=== PATIENT | male | born 1990 | race Caucasian/White ===

== ENCOUNTER 2016-05-08 12:30 | Emergency (ER) | payer OTHER ==
[2016-05-08 12:50] VITALS: BP 116/75; PULSE 102; TEMP 98; BMI 33.9
[2016-05-08] MEDS ORDERED: KETOROLAC TROMETHAMINE 60 MG/2 ML VIAL ONE (13:51)
[2016-05-08] MEDS ORDERED: diazePAM 5 MG TABLET PO ONE (13:51)
[2016-05-08] MEDS ORDERED: KETOROLAC TROMETHAMINE 60 MG/2 ML VIAL IM ONE (13:51)
[2016-05-08] MEDS ORDERED: diazePAM 5 MG TABLET ONE (13:56)
--- NOTE | 2016-05-08 14:37 | PDOC ---
History of Present Illness - General Chief Complaint: Back Pain Stated Complaint: LOWER BACK PAIN Time Seen by Provider: 05/08/16 13:40 History Source: Patient Exam Limitations: No Limitations - History of Present Illness Initial Comments: 05/08/16 14:32 LOwer back pain x 2 days; hx of similar episodes in past; LMD is sending to PT in near future Occurred: reports: other (x 2 days ago; no trauma) Severity: reports: mild Pain Location: reports: back Loss of Consciousness: no loss of consciousness Associated Symptoms (Fall): muscle spasms Past History - Past Medical History Allergies/Adverse Reactions: Allergies Allergy/AdvReac Type Severity Reaction Status Date / Time No Known Allergies Allergy Verified 05/08/16 12:48 Home Medications: Ambulatory Orders NK [No Known Home Medication] 05/08/16 Asthma: Yes - Psycho/Social/Smoking Cessation Hx Suicidal Ideation: No Smoking History: Never smoked Review of Systems - Review of Systems Constitutional: No: Chills, Fever, Malaise HEENTM: No: Symptoms Reported Respiratory: No: Symptoms reported Cardiac (ROS): No: Symptoms Reported ABD/GI: No: Symptoms Reported : No: Symptoms Reported, Dysuria, Frequency, Incontinence, Pain, Urgency, Testicular Swelling, Testicular Pain Musculoskeletal: Yes: Back Pain, Muscle Pain. No: Joint Pain, Neck Pain Integumentary: No: Symptoms Reported, Rash Neurological: Yes: Weakness (pain weakness). No: Headache, Numbness, Paresthesia Endocrine: No: Symptoms Reported Hematologic/Lymphatic: No: Symptoms Reported *Physical Exam - Vital Signs Last Vital Signs Temp Pulse Resp BP Pulse Ox 98 F 102 H 19 116/75 97 05/08/16 12:48 05/08/16 12:48 05/08/16 12:48 05/08/16 12:48 05/08/16 12:48 - Physical Exam General Appearance: Yes: Appropriately Dressed. No: Apparent Distress HEENT: positive: TMs Normal, Pharynx Normal Neck: positive: Supple. negative: Tender, Rigid, Tender midline Respiratory/Chest: positive: Lungs Clear, Normal Breath Sounds. negative: Accessory Muscle Use Cardiovascular: positive: Regular Rhythm, Regular Rate, Murmur Rectal Exam: positive: deferred Musculoskeletal: positive: Muscle Spasm, Other (tender to area left SI joint) Extremity: negative: Normal Capillary Refill, Normal Inspection Neurologic: positive: Babinski, Other (no foot drop; SLRs= no root pain). negative: Sensory Deficit Deep Tendon Reflexes: Ankle (L): 2+, Ankle (R): 2+, Knee (L): 2+, Knee (R): 2+ ED Treatment Course - Medications Given in the ED: ED Medications Discontinued Medications Generic Name Dose Route Start Last Admin Trade Name Agustin PRN Reason Stop Dose Admin Diazepam 5 mg 05/08/16 13:51 05/08/16 13:57 Valium - PO 05/08/16 13:52 5 mg ONCE ONE Administration Ketorolac Tromethamine 60 mg 05/08/16 13:51 05/08/16 13:57 Toradol Injection - IM 05/08/16 13:52 60 mg ONCE ONE Administration Medical Decision Making - Medical Decision Making 05/08/16 14:36 feeling better post toradol and valium; will referr to local MD for continued workup *DC/Admit/Observation/Transfer Diagnosis at time of Disposition: Back pain Qualifiers: Back pain location: low back pain Chronicity: acute Back pain laterality: unspecified Sciatica presence: with sciatica Sciatica laterality: sciatica of left side Qualified Code(s): M54.42 - Lumbago with sciatica, left side - Discharge Dispostion Disposition: HOME Condition at time of disposition: Stable Admit: No - Patient Instructions Additional Instructions: please see local MD next week and start PT as needed - Post Discharge Activity Work/School Note: Back to Work
== END 2016-05-08 14:41 | disposition home or self-care (01) ==
LOC: JERFT 12:30
PROC: 3E0233Z Introduction of Anti-inflammatory into Muscle, Percutaneous Approach (ICD-10-PCS; principal; 2016-05-08)
DX: M54.42 Lumbago with sciatica, left side (principal); J45.909 Unspecified asthma, uncomplicated
CPT/HCPCS: 99281-25

== ENCOUNTER 2017-05-24 08:34 | Emergency (ER) | payer OTHER ==
[2017-05-24 08:45] VITALS: BP 136/54; PULSE 73; TEMP 98; BMI 33.9
[2017-05-24] MEDS ORDERED: KETOROLAC TROMETHAMINE 60 MG/2 ML VIAL IM ONE (09:34)
[2017-05-24] MEDS ORDERED: diazePAM 5 MG TABLET PO ONE (09:34)
[2017-05-24] MEDS ORDERED: diazePAM 5 MG TABLET ONE (09:35)
[2017-05-24] MEDS ORDERED: KETOROLAC TROMETHAMINE 60 MG/2 ML VIAL ONE (09:35)
--- NOTE | 2017-05-24 09:38 | PDOC ---
History of Present Illness - General Chief Complaint: Back Pain Stated Complaint: BACK PAIN Time Seen by Provider: 05/24/17 09:12 History Source: Patient Exam Limitations: No Limitations - History of Present Illness Initial Comments: 05/24/17 09:35 CHIEF COMPLAINT: [Lower back pain] HISTORY OF PRESENT ILLNESS: 26-year-old male, history of low back pain reports today was working out doing pushups felt pain to lower back with him down bilateral legs. [ Described as stiffness to lower back. Pain reproduced more with movement. No neurosensory deficits, no bowel or bladder incontinence or urinary retention, felt as if he had to have a bowel movement when pain started however no episode of incontinence, no saddle anesthesia, no footdrop. No history of IVDU or history of cancer. Ambulatory to the ER.] REVIEW OF SYSTEMS: GENERAL: Afebrile, denies any weakness RESPIRATORY: No cough, wheezing, or hemoptysis. CARDIAC: No chest pain or shortness of breath MUSCULOSKELETAL: Pain to generalized lower back. No point tenderness. Pain worse on [right than left. ] SKIN : No erythema, no bruising, no deformity. GI/: Denies any abdominal pain, no urinary difficulty, incontinence or urinary retention. RECTAL: Denies any difficulty this A.m. NEUROLOGICAL: Denies any numbness or tingling. No neurosensory deficits. PHYSICAL EXAM: GENERAL: The patient is awake, alert, and fully oriented, in no acute distress. RESPIRATORY: Lungs clear bilaterally, no rhonchi wheezes or crackles CARDIAC: S1-S2 audible, no murmur rub or gallop MUSCULOSKELETAL: Pain to generalized lower back, no direct spinal point tenderness, no tingling or sensory deficit. Less than 2 second cap refill, +4 popliteal and pedal pulses. GI/: Abdomen soft, nontender, nondistended. No rebound tenderness. No masses palpable. MUSCULOSKELETAL: No spinal point tenderness. Normal reflexive and no deficits to sensation or strength. RECTAL: [Normal Rectal Tone]. SKIN: Warm, Dry, normal turgor, no erythema, no edema no bruising. Past History - Past Medical History Allergies/Adverse Reactions: Allergies Allergy/AdvReac Type Severity Reaction Status Date / Time No Known Allergies Allergy Verified 05/24/17 08:45 Home Medications: Ambulatory Orders Cyclobenzaprine HCl [Flexeril 10 mg] 10 mg PO BID PRN #20 tablet 05/24/17 Methylprednisolone [Medrol Dose Dhruv] 4 mg PO ASDIR #21 tablet 05/24/17 Mometasone Furoate [Asmanex] 110 mcg PO ASDIR 05/24/17 Asthma: Yes COPD: No - Suicide/Smoking/Psychosocial Hx Smoking History: Never smoked Information on smoking cessation initiated: Yes Hx Alcohol Use: No Drug/Substance Use Hx: No Substance Use Type: None *Physical Exam - Vital Signs Last Vital Signs Temp Pulse Resp BP Pulse Ox 98 F 73 19 136/54 100 05/24/17 08:43 05/24/17 08:43 05/24/17 08:43 05/24/17 08:43 05/24/17 08:43 ED Treatment Course - RADIOLOGY Radiology Studies Ordered: Category Date Time Status SPINE-LUMBAR SACRAL [RAD] Stat Radiology 05/24/17 09:34 Ordered Medical Decision Making - Medical Decision Making 05/24/17 09:37 A/P: Pain to generalized lower back with no direct spinal point tenderness. No neurosensory deficits. Patient has had similar pain in the past no x-rays were performed. Will perform x-ray of lumbar sacral area, Toradol 60 mg and Valium 5 mg. 05/24/17 10:52 X-ray demonstrates mild asymmetric L4-L5 degenerative disc space narrowing. Will discharge on Medrol Dosepak, Flexeril, follow-up for further evaluation for chronic back pain. *DC/Admit/Observation/Transfer Diagnosis at time of Disposition: Back pain Qualifiers: Back pain location: low back pain Chronicity: chronic Back pain laterality: bilateral Sciatica presence: without sciatica Qualified Code(s): M54.5 - Low back pain; G89.29 - Other chronic pain; G89.29 - Other chronic pain - Discharge Dispostion Disposition: HOME Condition at time of disposition: Stable - Prescriptions Prescriptions: Cyclobenzaprine HCl [Flexeril 10 mg] 10 mg PO BID PRN #20 tablet PRN Reason: Pain Methylprednisolone [Medrol Dose Dhruv] 4 mg PO ASDIR #21 tablet - Referrals Referrals: Kirk Fox MD [Primary Care Provider] - Javier Handley MD [Staff Physician] - - Patient Instructions Printed Discharge Instructions: Low Back Pain Additional Instructions: 1. Please return to the emergency department with any numbness, tingling, weakness, numbness or tingling to groin or legs, or loss of bowel or bladder function. 2. Use pain medication as ordered. 3. Please is to followup in the office of Dr. Handley for evaluation within a week if no improvement. 4. Ice or heat 5. Refrain from lifting anything above 10 pounds, until pain resolved. - Post Discharge Activity Forms/Work/School Notes: Back to Work
== END 2017-05-24 11:02 | disposition home or self-care (01) ==
LOC: JERFT 08:34
PROC: 3E0233Z Introduction of Anti-inflammatory into Muscle, Percutaneous Approach (ICD-10-PCS; principal; 2017-05-24)
DX: M54.5 Low back pain (principal); G89.29 Other chronic pain; X50.0XXA Overexertion from strenuous movement or load, initial encounter; X50.3XXA Overexertion from repetitive movements, initial encounter; Y93.B2 Activity, push-ups, pull-ups, sit-ups; Y92.89 Other specified places as the place of occurrence of the external cause; Y99.8 Other external cause status
CPT/HCPCS: 72100-TC-FY; 99281-25

== ENCOUNTER 2017-06-01 17:17 | Emergency (ER) | payer OTHER ==
--- NOTE | 2017-06-01 17:19 | PDOC ---
Rapid Medical Evaluation Time Seen by Provider: 06/01/17 17:18 Medical Evaluation: Allergies Allergy/AdvReac Type Severity Reaction Status Date / Time No Known Allergies Allergy Verified 05/24/17 08:45 06/01/17 17:19 I have performed a brief in-person evaluation of this patient. The patient presents with a chief complaint of: Body aches, cough, f/c x 3 days , child w/ flu at home per pt Pertinent physical exam findings:Temp of 100.8 w/ HR of 110 I have ordered the following:flu The patient will proceed to the ED for further evaluation. 06/01/17 17:19 06/01/17 17:23 Discharge Disposition - Diagnosis Body aches - Referrals - Patient Instructions - Post Discharge Activity
[2017-06-01 17:21] VITALS: BP 140/78; PULSE 110; TEMP 100.8; BMI 33.9
[2017-06-01] MEDS ORDERED: ACETAMINOPHEN 325 MG TABLET (FP) PO ONE (18:31)
[2017-06-01] MEDS ORDERED: ALBUTEROL SO4 2.5/IPRATROPIUM 0.5 INH SOL 3 ML VIAL.NEB. NEB ONE ×4 (18:52→19:22)
[2017-06-01] MEDS ORDERED: predniSONE 20 MG TABLET (UD) PO ONE (19:18)
[2017-06-01] MEDS ORDERED: predniSONE 20 MG TABLET (UD) ONE (19:22)
--- NOTE | 2017-06-01 19:25 | PDOC ---
History of Present Illness - General Chief Complaint: Cold Symptoms Stated Complaint: COLD SYMPTOMS Time Seen by Provider: 06/01/17 17:18 History Source: Patient Exam Limitations: No Limitations - History of Present Illness Initial Comments: 06/01/17 19:19 Patient here for evaluation of fevers Tmax 102 yesterday, moist nonproductive cough, runny nose, and generalized body aches that started 2 days ago. States daughter was diagnosed with influenza by swab 3 days ago and states this cold has exacerbated his asthma Timing/Duration: reports: getting worse Severity: reports: mild, moderate Modifying Factors: improves with: albuterol inhaler Associated Symptoms: reports: cough, facial pain, nasal congestion, sore throat , wheezing Past History - Travel Traveled outside of the country in the last 30 days: No Close contact w/someone who was outside of country & ill: No - Past Medical History Allergies/Adverse Reactions: Allergies Allergy/AdvReac Type Severity Reaction Status Date / Time No Known Allergies Allergy Verified 06/01/17 17:22 Home Medications: Ambulatory Orders Albuterol 0.083% Nebulizer Yesi [Ventolin 0.083% Nebulizer Soln -] 1 neb NEB Q4H PRN #30 vial 06/01/17 Oseltamivir Phosphate [Tamiflu -] 75 mg PO BID #10 capsule 06/01/17 predniSONE [Deltasone -] 20 mg PO BID #8 tablet 06/01/17 Asthma: Yes COPD: No DVT: No - Suicide/Smoking/Psychosocial Hx Smoking History: Never smoked Information on smoking cessation initiated: No Hx Alcohol Use: No Drug/Substance Use Hx: No Substance Use Type: None Review of Systems - Review of Systems Able to Perform ROS?: Yes Is the patient limited Faroese proficient: Yes Constitutional: Yes: Symptoms Reported, See HPI, Fever, Malaise HEENTM: Yes: Symptoms Reported Respiratory: Yes: Symptoms reported, See HPI, Cough, Wheezing Musculoskeletal: Yes: Symptoms Reported, Back Pain, Joint Pain Integumentary: No: Symptoms Reported All Other Systems: Reviewed and Negative *Physical Exam - Vital Signs Last Vital Signs Temp Pulse Resp BP Pulse Ox 100.8 F H 110 H 19 140/78 98 06/01/17 17:19 06/01/17 17:19 06/01/17 17:19 06/01/17 17:19 03/28/18 17:19 - Physical Exam Comments: 06/01/17 19:20 GENERAL: [The child is awake, alert, and appropriately interactive.] EYES: [The pupils are equal, round, and reactive to light, with clear, conjunctiva.but glassy] NOSE: [The nose with clear drainage EARS: [The ear canals and tympanic membranes are congested but landmarks easily visualed ] THROAT: [The oropharynx is clear with erythema, no exudates. The mucous membranes are moist.] NECK: [The neck is supple with mildly tender adenopathy, no menigemous] CHEST: [The lungs are coarse but clear without crackles, but + wheezes and shortness of breath..] HEART: [Heart is regular rhythm, with normal S1 and S2, no murmurs.] ABDOMEN: [The abdomen is soft and nontender with normal bowel sounds. There is no organomegaly and no mass. There is no guarding or rebound.] EXTREMITIES: [Extremities are normal.] NEURO: [Behavior is normal for age.cranky but easily,m Tone is normal.] SKIN: [Skin is unremarkable without rash or swelling. There is no bruising, and there are no other signs of injury.] General Appearance: Yes: Nourished, Appropriately Dressed, Apparent Distress HEENT: positive: CAROL, TMs Normal, Pharyngeal Erythema, Nasal Congestion, Rhinorrhea Neck: positive: Supple. negative: Tender, Lymphadenopathy (R), Lymphadenopathy (L) Respiratory/Chest: positive: Decreased Breath Sounds, Wheezing. negative: Lungs Clear ED Treatment Course - ADDITIONAL ORDERS Additional order review: 06/01/17 17:25 Influenza Types A,B Antigen (DEL) - Final Nasopharyngeal Swab - Final - Medications Given in the ED: ED Medications Discontinued Medications Generic Name Dose Route Start Last Admin Trade Name Freq PRN Reason Stop Dose Admin Acetaminophen 650 mg 06/01/17 18:31 06/01/17 18:33 Tylenol - PO 06/01/17 18:32 650 mg ONCE ONE Administration Progress Note - Progress Note Progress Note: Probable influenza although influenza testing negative. Has every clinical evidence including risk factors with daughter sick at home with same. We will treat with Tamiflu is within window, continue albuterol nebulizers and short course of prednisone. *DC/Admit/Observation/Transfer Diagnosis at time of Disposition: Body aches, Influenzal acute upper respiratory infection - Discharge Dispostion Disposition: HOME Condition at time of disposition: Stable Admit: No - Prescriptions Prescriptions: Albuterol 0.083% Nebulizer Yesi [Ventolin 0.083% Nebulizer Soln -] 1 neb NEB Q4H PRN #30 vial PRN Reason: Cough Oseltamivir Phosphate [Tamiflu -] 75 mg PO BID #10 capsule predniSONE [Deltasone -] 20 mg PO BID #8 tablet - Referrals Referrals: Selene Bernard MD [Primary Care Provider] - - Patient Instructions Additional Instructions: Rest, drink lots of fluids: Teas, water, soups, Pedialyte Saltwater gargles Steamy showers/seem to face break up mucus Old-fashioned treatments help! Avoid contact with others until fevers and cough resolved as this is very contagious Lots of handwashing and good hygiene Continue [id number] medications for symptomatic relief Tylenol or Motrin for fever and pain Take all of Tamiflu as directed: 1 tab every 12 hours for 5 days Albuterol nebulizers every 4-6 hours for the next few days then as needed for continued cough and wheeze Prednisone 40 mg tablets for the next 4 days Followup with private physician in one to 2 days as needed or if worsening Return to emergency department for worsened symptoms, fevers, dehydration Influenza takes between 5 and 7 days for resolution To not participate in any activity, work, or school until fevers and cough are gone for at least one day - Post Discharge Activity Forms/Work/School Notes: Back to Work
== END 2017-06-01 19:57 | disposition home or self-care (01) ==
LOC: JERFT 17:17
PROC: 3E0F7GC Introduction of Other Therapeutic Substance into Respiratory Tract, Via Natural or Artificial Opening (ICD-10-PCS; principal; 2017-06-01)
DX: R52 Pain, unspecified (principal); J45.909 Unspecified asthma, uncomplicated
CPT/HCPCS: 87804; 99281-25

== ENCOUNTER 2017-10-13 13:27 | Inpatient (IN) | payer OTHER ==
[2017-10-13] MEDS ORDERED: SODIUM CHLORIDE 1,000 ML IV STA ×2 (14:24→15:56)
--- NOTE | 2017-10-13 14:24 | PDOC ---
History of Present Illness - General Chief Complaint: Hematuria Stated Complaint: HEMATURIA Time Seen by Provider: 10/13/17 14:12 - History of Present Illness Initial Comments: 10/13/17 16:05 The patient is a 27 year old male with a past medical history of asthma who presents to the emergency department for evaluation of hematuria. The patient reports episodes of dark urine today. He reports weightlifting on Tuesday after a long period of not exercising. He reports doing a lot of resistance and heavy weight lifting. He tried to work out again today but was unable to due to muscle soreness. He describes the urine as iced tea colored, but denies bright red color. The patient reports generalized soreness throughout the body, but denies pain. At presentation, the patient has no other complaints. The patient denies recent illness, chest pain, back pain, shortness of breath, headache, and dizziness. Denies fever, chills, nausea, vomiting, diarrhea, constipation, dysuria, and urinary urgency/frequency. Reports normal UOP. Allergies: NKDA Social History: No reported alcohol, cigarette, or drug use. Surgical History: Denies. PCP: Dr. Bernard ([phone]) Past History - Past Medical History Allergies/Adverse Reactions: Allergies Allergy/AdvReac Type Severity Reaction Status Date / Time No Known Allergies Allergy Verified 10/13/17 13:33 Home Medications: Ambulatory Orders Albuterol 0.083% Nebulizer Yesi [Ventolin 0.083% Nebulizer Soln -] 1 neb NEB Q4H PRN #30 vial 06/01/17 Oseltamivir Phosphate [Tamiflu -] 75 mg PO BID #10 capsule 06/01/17 predniSONE [Deltasone -] 20 mg PO BID #8 tablet 06/01/17 Asthma: Yes COPD: No DVT: No - Immunization History Immunization Up to Date: Yes - Suicide/Smoking/Psychosocial Hx Smoking History: Never smoked Information on smoking cessation initiated: No Hx Alcohol Use: Yes (SOCIAL) Drug/Substance Use Hx: No Substance Use Type: None Review of Systems - Review of Systems Comments:: 10/13/17 16:11 GENERAL/CONSTITUTIONAL: No fever or chills. No weakness. HEAD, EYES, EARS, NOSE AND THROAT: No change in vision. No ear pain or discharge. No sore throat. GASTROINTESTINAL: No nausea, vomiting, diarrhea or constipation. GENITOURINARY: (+)dark urine. No dysuria, frequency, or change in urination. CARDIOVASCULAR: No chest pain or shortness of breath. RESPIRATORY: No cough, wheezing, or hemoptysis. MUSCULOSKELETAL: (+)Diffuse body soreness.No joint pain. No neck or back pain. SKIN: No rash NEUROLOGIC: No headache, vertigo, loss of consciousness, or change in strength/ sensation. ENDOCRINE: No increased thirst. No abnormal weight change. HEMATOLOGIC/LYMPHATIC: No anemia, easy bleeding, or history of blood clots. ALLERGIC/IMMUNOLOGIC: No hives or skin allergy. *Physical Exam - Vital Signs Last Vital Signs Temp Pulse Resp BP Pulse Ox 98.3 F 86 20 139/92 99 10/13/17 13:30 10/13/17 13:30 10/13/17 13:30 10/13/17 13:30 10/13/17 13:30 - Physical Exam Comments: 10/13/17 16:11 GENERAL: Awake, alert, and fully oriented, in no acute distress HEAD: No signs of trauma EYES: PERRLA, EOMI, sclera anicteric, conjunctiva clear ENT: Auricles normal inspection, hearing grossly normal, nares patent, oropharynx clear without exudates. Moist mucosa NECK: Normal ROM, supple, no lymphadenopathy, JVD, or masses LUNGS: Breath sounds equal, clear to auscultation bilaterally. No wheezes, and no crackles HEART: Regular rate and rhythm, normal S1 and S2, no murmurs, rubs or gallops ABDOMEN: Soft, nontender, normoactive bowel sounds. No guarding, no rebound. No masses EXTREMITIES: Normal range of motion, no edema. No clubbing or cyanosis. No cords , erythema, or tenderness BACK: No midline spinal tenderness in cervical/thoracic/lumbar region NEUROLOGICAL: Normal speech, cranial nerves intact, negative pronator drift, 5/ 5 strength in all 4 extremities, normal sensation to light touch in all 4 extremities, normal cerebellar exam, normal gait, normal reflexes and tone SKIN: Warm, Dry, normal turgor, no rashes or lesions noted. ED Treatment Course - LABORATORY CBC & Chemistry Diagram: 10/13/17 14:46 10/13/17 14:46 Medical Decision Making - Medical Decision Making 10/13/17 16:11 27-year-old male with no significant past medical history presents emergency Department with dark urine and muscle soreness after working out for the first time in a while. Vitals unremarkable. Exam is unremarkable. Story is concerning for rhabdo. Plan: -labs -US -IVF -dispo 10/13/17 17:12 [place] [id number]+ LFTs bumped, also due to rhabdo UA with 3+ blood, no RBCs all consistent with rhabdo Pt getting NS liter number 2 Case discussed with [facility] [employer] Ellyn, accepted for inpt admission under Dr. Canales Case discussed in detail with admitting physician including history, physical exam and ancillary studies. Admitting physician has assumed care for the patient, will follow all pending diagnostics and will complete the evaluation and treatment. *DC/Admit/Observation/Transfer Diagnosis at time of Disposition: Rhabdomyolysis - Discharge Dispostion Condition at time of disposition: Stable Decision to Admit order: Yes - Referrals Referrals: Selene Bernard MD [Primary Care Provider] - - Patient Instructions - Post Discharge Activity - Attestations Physician Attestion: 10/13/17 17:14 I, Dr. Howard Saenz MD, attest that this document has been prepared under my direction and personally reviewed by me in its entirety. I further attest, that it accurately reflects all work, treatment, procedures and medical decision -making performed by me.
[2017-10-13 14:58] LABS: BASO % 0.4 % (0-2.0); EOS % 1.3 % (0-4.5); HEMATOCRIT 45.4 % (35.4-49); LYMPH % 15.9 % (8-40); MCH 28.5 pg (25.7-33.7); MCHC 33.1 g/dl (32.0-35.9); MEAN CELL VOLUME 86.1 fl (80-96); MEAN PLT VOLUME 8.9 fl (7.5-11.1); MONO % 7.7 % (3.8-10.2); NEUT % 74.7 % (42.8-82.8); PLATELET COUNT 335 K/MM3 (134-434); RBC 5.27 M/mm3 (4.00-5.60); RDW 14.2 % (11.9-15.9); WHITE BLOOD COUNT 13.8 K/mm3 (4.0-10.0)
[2017-10-13 14:59] LABS: URINE APPEARANCE CLEAR; URINE BILIRUBIN NEGATIVE (<2.0 mg/dL); URINE GLUCOSE (UA) NEGATIVE (NEGATIVE); URINE KETONE NEGATIVE (NEGATIVE); URINE LEUK ESTERASE NEGATIVE (NEGATIVE); URINE NITRITE NEGATIVE (NEGATIVE); URINE PROTEIN NEGATIVE (NEGATIVE); URINE UROBILINOGEN NEGATIVE mg/dL (0.2-1.0)
[2017-10-13 15:12] LABS: ALBUMIN 4.2 g/dl (3.4-5.0); ALK PHOS 53 U/L (45-117); ANION GAP 9 (8-16); BILIRUBIN,TOTAL 0.3 mg/dL (0.2-1.0); BLOOD UREA NITROGEN 15 mg/dL (7-18); CALCIUM 9.2 mg/dL (8.5-10.1); CHLORIDE 107 mmol/L (98-107); CO2 27 mmol/L (21-32); GLUCOSE,RANDOM 87 mg/dL (74-106); POTASSIUM 3.7 mmol/L (3.5-5.1); SODIUM 143 mmol/L (136-145); TOT PROT 8.1 g/dl (6.4-8.2)
[2017-10-13 15:17] LABS: URINE COLOR YELLOW
[2017-10-13 15:20] LABS: SGPT/ALT 367 U/L (12-78)
[2017-10-13 15:22] LABS: SGOT/AST 1328 U/L (15-37)
--- NOTE | 2017-10-13 17:13 | HP ---
CHIEF COMPLAINT: tea colored urine, muscle soreness PCP: Dr Bernard HISTORY OF PRESENT ILLNESS: Patient is a 27 year old male with a past medical history of asthma and eczema. He presents to the ED today for evaluation of hematuria and an episode of tea colored urine. Patient reports weightlifting on Tuesday after not exercising for a while. On Tuesday, he lifted heavy upper body weights that consisted of dumb bells and free weights. He went to the gym again today to lift weights but was not able to secondary to upper body muscle soreness and painful arms. He also noted that when he urinated today the urine was dark and looked like dark tea, but not bright red. He presented to the ED for for further evaluation. 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 He was recently treated with oral antibiotics for right lower ext inner ankle cellulitis but does not remember which antibiotic. He took a total of 6 doses. The patient denies chest pain, back pain, shortness of breath, headache, and dizziness. ER course was notable for: (1) wbc 13.8 (2) ast 1328, alt 367 (3) ck 76,236 (4) +3 blood PAST MEDICAL HISTORY: asthma, right lower ext cellulitis Social History: Smoking: denies Alcohol: denies Drugs: denies Family History: Allergies No Known Allergies Allergy (Verified 10/13/17 13:33) HOME MEDICATIONS: Home Medications Medication Instructions Recorded Albuterol 0.083% Nebulizer Yesi 1 neb NEB Q4H PRN #30 vial 06/01/17 [Ventolin 0.083% Nebulizer Soln -] Oseltamivir Phosphate [Tamiflu -] 75 mg PO BID #10 capsule 06/01/17 predniSONE [Deltasone -] 20 mg PO BID #8 tablet 06/01/17 PHYSICAL EXAMINATION Vital Signs - 24 hr 10/13/17 13:30 Temperature 98.3 F Pulse Rate 86 Respiratory 20 Rate Blood Pressure 139/92 O2 Sat by Pulse 99 Oximetry (%) GENERAL: Awake, alert, and fully oriented, in no acute distress. HEAD: Normal with no signs of trauma. EYES: Pupils equal, round and reactive to light, extraocular movements intact, sclera anicteric, conjunctiva clear. No lid lag. EARS, NOSE, THROAT: Ears normal, nares patent, oropharynx clear without exudates. Moist mucous membranes. NECK: Normal range of motion, supple without lymphadenopathy, JVD, or masses. LUNGS: Breath sounds equal, clear to auscultation bilaterally. No wheezes, and no crackles. No accessory muscle use. HEART: Regular rate and rhythm ABDOMEN: Soft, nontender, not distended, normoactive bowel sounds, no guarding, no rebound, no masses. No hepatomegaly or splenomegaly. MUSCULOSKELETAL: Normal range of motion at all joints. No bony deformities or tenderness. No CVA tenderness. UPPER EXTREMITIES: No peripheral edema. LOWER EXTREMITIES: right inner ankle, mild redness, treated for cellulitis, apply bactroban NEUROLOGICAL: Normal speech. Normal gait. PSYCHIATRIC: Cooperative. Good eye contact. Appropriate mood and affect. Laboratory Results - last 24 hr 10/13/17 10/13/17 10/13/17 14:25 14:46 14:46 WBC 13.8 H RBC 5.27 Hgb 15.0 Hct 45.4 MCV 86.1 MCH 28.5 MCHC 33.1 RDW 14.2 Plt Count 335 MPV 8.9 Absolute Neuts (auto) 10.3 Neutrophils % 74.7 Lymphocytes % 15.9 Monocytes % 7.7 Eosinophils % 1.3 Basophils % 0.4 Nucleated RBC % 0 Sodium 143 Potassium 3.7 Chloride 107 Carbon Dioxide 27 Anion Gap 9 BUN 15 Creatinine 1.0 Creat Clearance w eGFR > 60 Random Glucose 87 Calcium 9.2 Total Bilirubin 0.3 AST 1328 H ALT 367 H D Alkaline Phosphatase 53 Creatine Kinase 20576 H Total Protein 8.1 Albumin 4.2 Urine Color Urine Appearance Urine pH Ur Specific [place] Urine Protein Urine Glucose (UA) Urine Ketones Urine Blood Urine Nitrite Urine Bilirubin Urine Urobilinogen Ur Leukocyte Esterase Urine WBC (Auto) Urine RBC (Auto) 10/13/17 14:46 WBC RBC Hgb Hct MCV MCH MCHC RDW Plt Count MPV Absolute Neuts (auto) Neutrophils % Lymphocytes % Monocytes % Eosinophils % Basophils % Nucleated RBC % Sodium Potassium Chloride Carbon Dioxide Anion Gap BUN Creatinine Creat Clearance w eGFR Random Glucose Calcium Total Bilirubin AST ALT Alkaline Phosphatase Creatine Kinase Total Protein Albumin Urine Color Yellow Urine Appearance Clear Urine pH 7.0 D Ur Specific [place] 1.001 Urine Protein Negative Urine Glucose (UA) Negative Urine Ketones Negative Urine Blood 3+ H Urine Nitrite Negative Urine Bilirubin Negative Urine Urobilinogen Negative Ur Leukocyte Esterase Negative Urine WBC (Auto) 1 Urine RBC (Auto) <1 ASSESSMENT/PLAN: Patient is a 27 year old male with a past medical history of asthma and eczema. He presents to the ED today for evaluation of hematuria and an episode of tea colored urine. Patient reports weightlifting on Tuesday after not exercising for a while. On Tuesday, he lifted heavy upper body weights that consisted of dumb bells and free weights. He went to the gym again today to lift weights but was not able to secondary to upper body muscle soreness and painful arms. He also noted that when he urinated today the urine was dark and looked like dark tea, but not bright red. He presented to the ED for for further evaluation. 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 He was recently treated with oral antibiotics for right lower ext inner ankle cellulitis but does not remember which antibiotic. He took a total of 6 doses. The patient denies chest pain, back pain, shortness of breath, headache, and dizziness. Renal: Rhabdomyolysis, acute CPK 76,236 on admission. bun/creat function within normal limits. ast/alt elevated. aggressive IVF hydration of 2 liters given in the ED. Will continue NS @ 150cc.hr. Monitor kidney function. renal consulted. Pulm: Asthma: not in exacerbation. On Asmanex. Vascular: Cellulitis of right inner ankle, Patient works at a gym and hosp. Monitor wound. Was treated outpatient with 6/7 doses of PO antibiotics, apply bactroban. If worsening ID consult. fen NS @ 125cc/hr monitor electrolytes low salt prophy heparin bid Visit type - Emergency Visit Emergency Visit: Yes ED Registration Date: 10/13/17 Care time: The patient presented to the Emergency Department on the above date and was hospitalized for further evaluation of their emergent condition. - New Patient This patient is new to me today: Yes Date on this admission: 10/14/17 - Critical Care Critical Care patient: No Hospitalist Screening - Colonoscopy Questionnaire Colonoscopy Questionnaire: Colonoscopy Questionnaire - Patient: 50 - 75 years old and never had a screening colonoscopy: Unknown History of colon or rectal polyps, or CA: Unknown History of IBD, Crohn's disease or UC: Unknown History of abdominal radiation therapy as a child: Unknown - Relative: 1 with colon or rectal CA, or polyps at age 60 or younger: Unknown Colon or rectal CA diagnosed at age 45 or younger: Unknown Multiple relatives with colon or rectal CA: Unknown - Outcome: Screening Result: Negative Screen
[2017-10-13] MEDS ORDERED: LACTATED RINGERS SOLUTION 1000 ML INFUS.BAG IV ONE (17:19)
[2017-10-13] MEDS: SODIUM CHLORIDE 1,000 ML IV SCH ×2 (17:23→20:07)
[2017-10-13] MEDS ORDERED: LACTATED RINGERS SOLUTION 1,000 ML/1,000 ML INFUS.BAG IV SCH (17:30)
[2017-10-13] MEDS ORDERED: ALBUTEROL SO4 2.5/IPRATROPIUM 0.5 INH SOL 3 ML VIAL.NEB. NEB PRN (18:58)
[2017-10-13] MEDS: MUPIROCIN 2% TOPICAL OINTMENT 22 GM TUBE TP SCH (21:59)
[2017-10-13] MEDS: HEPARIN NA (PORCINE) 5,000 UNITS/ML 1ML VIAL SQ SCH (22:00)
[2017-10-13] MEDS: MOMETASONE FUROATE 110 MCG/IH INHALER IH SCH (22:00)
[2017-10-13] MEDS ORDERED: CEPHALEXIN MONOHYDRATE 500 MG CAPSULE (UD) PO ONE (23:00)
[2017-10-14 00:21] VITALS: BMI 37.8
--- NOTE | 2017-10-14 08:24 | PN ---
Physical Exam: SUBJECTIVE: Patient seen and examined at the bedside. In no acute distress. Offers no complaints other than wanting to go home. OBJECTIVE: assured patient that the main stay of treating rhabdo is aggressive hydration and oral oral hydration intake is not sufficient. IV hydration to continue until CPK stabilzies. Vital Signs Period Temp Pulse Resp BP Sys/Stevens Pulse Ox Last 24 Hr 97.5 F-98.3 F 74-86 18-20 118-139/74-92 98-99 GENERAL: Awake, alert, and fully oriented, in no acute distress. HEAD: Normal with no signs of trauma. EYES: Pupils equal, round and reactive to light, extraocular movements intact, sclera anicteric, conjunctiva clear. No lid lag. EARS, NOSE, THROAT: Ears normal, nares patent, oropharynx clear without exudates. Moist mucous membranes. NECK: Normal range of motion, supple without lymphadenopathy, JVD, or masses. LUNGS: Breath sounds equal, clear to auscultation bilaterally. No wheezes, and no crackles. No accessory muscle use. HEART: Regular rate and rhythm ABDOMEN: Soft, nontender, not distended, normoactive bowel sounds, no guarding, no rebound, no masses. No hepatomegaly or splenomegaly. MUSCULOSKELETAL: Normal range of motion at all joints. No bony deformities or tenderness. No CVA tenderness. UPPER EXTREMITIES: No peripheral edema. LOWER EXTREMITIES: right inner ankle, mild redness, treated for cellulitis, apply bactroban NEUROLOGICAL: Normal speech. Normal gait. PSYCHIATRIC: Cooperative. Good eye contact. Appropriate mood and affect. Laboratory Results - last 24 hr 10/13/17 10/13/17 10/13/17 14:25 14:46 14:46 WBC 13.8 H RBC 5.27 Hgb 15.0 Hct 45.4 MCV 86.1 MCH 28.5 MCHC 33.1 RDW 14.2 Plt Count 335 MPV 8.9 Absolute Neuts (auto) 10.3 Neutrophils % 74.7 Lymphocytes % 15.9 Monocytes % 7.7 Eosinophils % 1.3 Basophils % 0.4 Nucleated RBC % 0 Sodium 143 Potassium 3.7 Chloride 107 Carbon Dioxide 27 Anion Gap 9 BUN 15 Creatinine 1.0 Creat Clearance w eGFR > 60 Random Glucose 87 Calcium 9.2 Total Bilirubin 0.3 AST 1328 H ALT 367 H D Alkaline Phosphatase 53 Creatine Kinase 88720 H Total Protein 8.1 Albumin 4.2 Urine Color Urine Appearance Urine pH Ur Specific [place] Urine Protein Urine Glucose (UA) Urine Ketones Urine Blood Urine Nitrite Urine Bilirubin Urine Urobilinogen Ur Leukocyte Esterase Urine WBC (Auto) Urine RBC (Auto) 10/13/17 14:46 WBC RBC Hgb Hct MCV MCH MCHC RDW Plt Count MPV Absolute Neuts (auto) Neutrophils % Lymphocytes % Monocytes % Eosinophils % Basophils % Nucleated RBC % Sodium Potassium Chloride Carbon Dioxide Anion Gap BUN Creatinine Creat Clearance w eGFR Random Glucose Calcium Total Bilirubin AST ALT Alkaline Phosphatase Creatine Kinase Total Protein Albumin Urine Color Yellow Urine Appearance Clear Urine pH 7.0 D Ur Specific [place] 1.001 Urine Protein Negative Urine Glucose (UA) Negative Urine Ketones Negative Urine Blood 3+ H Urine Nitrite Negative Urine Bilirubin Negative Urine Urobilinogen Negative Ur Leukocyte Esterase Negative Urine WBC (Auto) 1 Urine RBC (Auto) <1 Active Medications Generic Name Dose Route Start Last Admin Trade Name Freq PRN Reason Stop Dose Admin Albuterol/Ipratropium 1 amp 10/13/17 18:58 Duoneb - NEB Q6H PRN SHORTNESS OF BREATH Heparin Sodium (Porcine) 5,000 unit 10/13/17 22:00 10/13/17 22:00 Heparin - SQ 5,000 unit BID LORNA Administration Sodium Chloride 1,000 mls @ 150 mls/hr 10/13/17 17:15 10/13/17 20:07 Normal Saline - IV 150 mls/hr ASDIR LORNA Administration Mometasone Furoate 1 puff 10/13/17 22:00 10/13/17 22:00 Asmanex 110mcg - IH 1 puff BID LORNA Administration Mupirocin 1 applic 10/13/17 22:00 10/13/17 21:59 Bactroban 2% Ointment - TP 1 applic BID LORNA Administration Pantoprazole Sodium 40 mg 10/14/17 10:00 Protonix - PO DAILY LORNA ASSESSMENT/PLAN: Patient is a 27 year old male with a past medical history of asthma and eczema. He presents to the ED today for evaluation of hematuria and an episode of tea colored urine. Patient reports weightlifting on Tuesday after not exercising for a while. On Tuesday, he lifted heavy upper body weights that consisted of dumb bells and free weights. He went to the gym again today to lift weights but was not able to secondary to upper body muscle soreness and painful arms. He also noted that when he urinated today the urine was dark and looked like dark tea, but not bright red. He presented to the ED and was found to have an elevated CPK of 76K with elevation of ast/alt.. Imaging: renal ultrasound: no acute pathology, small simple cyst 1.8cm on right kidney, mild fatty liver seen Renal: Rhabdomyolysis, acute CPK 76,236 >57,600. bun/creat function within normal limits. ast/alt trending down. aggressive IVF hydration of 2 liters given in the ED, now on maintenance fluids of d5 1/2 ns @100cc/hr. Monitor kidney function. renal consulted and following. Pulm: Asthma: not in exacerbation. On Asmanex. 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 Was treated outpatient with 6/7 doses of PO antibiotics, apply bactroban to area. Improving. fen d5 1/2 ns 10meq @ 125/cc/hr monitor electrolytes low salt prophy heparin bid Visit type - Emergency Visit Emergency Visit: Yes ED Registration Date: 10/13/17 Care time: The patient presented to the Emergency Department on the above date and was hospitalized for further evaluation of their emergent condition. - New Patient This patient is new to me today: No - Critical Care Critical Care patient: No - Discharge Referral Referred to [facility] No
[2017-10-14] MEDS ORDERED: PT OWN MED DRAWER 7, Y5N ONE (08:37)
[2017-10-14] MEDS: MOMETASONE FUROATE 110 MCG/IH INHALER IH SCH ×2 (08:59→23:45)
[2017-10-14] MEDS: HEPARIN NA (PORCINE) 5,000 UNITS/ML 1ML VIAL SQ SCH ×2 (09:00→23:46)
[2017-10-14] MEDS: PANTOPRAZOLE 40 MG TABLET (FP) PO SCH ×2 (09:01→09:08)
[2017-10-14 09:54] LABS: BASO % 0.5 % (0-2.0); EOS % 3.1 % (0-4.5); HEMATOCRIT 41.8 % (35.4-49); HEMOGLOBIN 14.1 GM/dL (11.7-16.9); MCH 29.1 pg (25.7-33.7); MCHC 33.8 g/dl (32.0-35.9); MEAN CELL VOLUME 86.2 fl (80-96); MEAN PLT VOLUME 8.5 fl (7.5-11.1); MONO % 7.2 % (3.8-10.2); NEUT % 61.2 % (42.8-82.8); PLATELET COUNT 301 K/MM3 (134-434); RBC 4.86 M/mm3 (4.00-5.60); WHITE BLOOD COUNT 8.3 K/mm3 (4.0-10.0)
[2017-10-14] MEDS: SODIUM CHLORIDE 1,000 ML IV SCH (09:58)
[2017-10-14 10:34] LABS: ALBUMIN 3.5 g/dl (3.4-5.0); ANION GAP 8 (8-16); BILIRUBIN,TOTAL 0.3 mg/dL (0.2-1.0); BLOOD UREA NITROGEN 10 mg/dL (7-18); CALCIUM 8.9 mg/dL (8.5-10.1); CHLORIDE 109 mmol/L (98-107); CO2 28 mmol/L (21-32); CREATININE 0.7 mg/dL (0.7-1.3); GLUCOSE,RANDOM 69 mg/dL (74-106); MAGNESIUM 2.2 mg/dL (1.8-2.4); POTASSIUM 3.8 mmol/L (3.5-5.1); SGPT/ALT 393 U/L (12-78); SODIUM 145 mmol/L (136-145); TOT PROT 7.1 g/dl (6.4-8.2)
[2017-10-14 10:41] LABS: ALK PHOS 44 U/L (45-117)
[2017-10-14 10:46] LABS: SGOT/AST 1099 U/L (15-37)
[2017-10-14] MEDS: MUPIROCIN 2% TOPICAL OINTMENT 22 GM TUBE TP SCH ×2 (11:04→23:46)
--- NOTE | 2017-10-14 11:53 | CONSULT ---
Consult Consult Specialty:: Nephrology ( [place]/ [place]) Reason for Consultation:: Acute Rhabdomyolysis - History of Present Illness Chief Complaint: 27 y/o male admitted with generalized body cahe and soreness. History of Present Illness: Patient is a 27 year old male with a past medical history of asthma and eczema. Came to the hospital for evaluation of hematuria and an episode of tea colored urine. Patient reports weightlifting on Tuesday after not exercising for a while. On Tuesday, he lifted heavy upper body weights that consisted of dumb bells and free weights. The CPK is extremely elevated. 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 No: Renal Failure, Renal Inusuff, Renal Calculi - Alcohol/Substance Use Hx Alcohol Use: Yes (SOCIAL) - Smoking History Smoking history: Never smoked Home Medications - Allergies Allergies/Adverse Reactions: Allergies Allergy/AdvReac Type Severity Reaction Status Date / Time No Known Allergies Allergy Verified 10/13/17 13:33 - Home Medications Home Medications: Ambulatory Orders Albuterol 0.083% Nebulizer Yesi [Ventolin 0.083% Nebulizer Soln -] 1 neb NEB Q4H PRN #30 vial 06/01/17 Cephalexin [Keflex] 500 mg PO BID 10/13/17 Review of Systems - Review of Systems Constitutional: reports: Weakness, Other (generalized body aches) Eyes: reports: No Symptoms. denies: Blind Spots, Blurred Vision HENT: denies: Difficult Swallowing Neck: denies: Decreased ROM Cardiovascular: denies: Palpitations, Shortness of Breath Respiratory: denies: Cough Gastrointestinal: denies: Abdominal Pain Musculoskeletal: reports: Extremity Pain, Muscle Pain. denies: Back Pain Neurological: denies: No Symptoms, Change in LOC, Confusion Psychiatric: denies: Anxiety, Depression Physical Exam Vital Signs: Vital Signs Temperature 97.3 F L 10/14/17 08:57 Pulse Rate 74 10/14/17 08:57 Respiratory Rate 18 10/14/17 08:57 Blood Pressure 139/88 10/14/17 08:57 O2 Sat by Pulse Oximetry (%) 98 10/14/17 09:00 Constitutional: Yes: Well Nourished, No Distress, Anxious HENT: Yes: Normocephalic Neck: Yes: Trachea Midline Cardiovascular: Yes: Regular Rate and Rhythm, S1, S2 Respiratory: Yes: CTA Bilaterally, Diminished Gastrointestinal: Yes: Normal Bowel Sounds, Soft Renal/: No: Bladder Distention, CVA Tenderness - Left, CVA Tenderness - Right Musculoskeletal: No: Back Pain, Joint Stiffness Extremities: Yes: Calf Tenderness. 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 He presents to the ED today for evaluation of hematuria and an episode of tea colored urine. The patient has profound elevation of CPK, with slightly dark urine. Renal functions normal. Acute traumatic Rhabdomyolysis, from excessive physical exertion. No evidence of Renal failure. Electrolytes in acceptable range. Plan: Vigorous hydration. Monitor the Renal/ electrolyte functions. IV fluids as ordered. Thank you. Will follow with you. Annabelle Canada MD
[2017-10-14] MEDS: D5-1/2NS+10 MEQ KCL - 10 MEQ/1,000 ML INFUS.BAG IV SCH ×2 (12:39→22:18)
[2017-10-15] MEDS: D5-1/2NS+10 MEQ KCL - 10 MEQ/1,000 ML INFUS.BAG IV SCH ×2 (05:34→13:37)
[2017-10-15 09:06] LABS: ALBUMIN 3.4 g/dl (3.4-5.0); ANION GAP 5 (8-16); BLOOD UREA NITROGEN 9 mg/dL (7-18); CALCIUM 8.6 mg/dL (8.5-10.1); CHLORIDE 107 mmol/L (98-107); CO2 29 mmol/L (21-32); CREATININE 0.7 mg/dL (0.7-1.3); GLUCOSE,RANDOM 85 mg/dL (74-106); PHOSPHOROUS 4.4 mg/dL (2.5-4.9); POTASSIUM 4.3 mmol/L (3.5-5.1); SODIUM 141 mmol/L (136-145)
[2017-10-15 09:08] LABS: SGOT/AST 931 U/L (15-37); SGPT/ALT 431 U/L (12-78)
[2017-10-15 09:31] LABS: ALK PHOS 42 U/L (45-117); BILIRUBIN,TOTAL 0.2 mg/dL (0.2-1.0); URIC ACID 4.9 mg/dL (2.6-7.2)
[2017-10-15] MEDS ORDERED: PT OWN MED DRAWER 7, Y5N ONE ×2 (10:21→10:32)
[2017-10-15] MEDS: PANTOPRAZOLE 40 MG TABLET (FP) PO SCH (10:27)
[2017-10-15] MEDS: HEPARIN NA (PORCINE) 5,000 UNITS/ML 1ML VIAL SQ SCH ×2 (10:27→22:08)
[2017-10-15] MEDS: MUPIROCIN 2% TOPICAL OINTMENT 22 GM TUBE TP SCH ×2 (10:28→22:07)
[2017-10-15] MEDS: MOMETASONE FUROATE 110 MCG/IH INHALER IH SCH ×2 (10:35→22:08)
[2017-10-15 11:21] LABS: BASO % 0.3 % (0-2.0); EOS % 5.3 % (0-4.5); HEMATOCRIT 41.8 % (35.4-49); HEMOGLOBIN 14.1 GM/dL (11.7-16.9); LYMPH % 29.5 % (8-40); MCH 29.3 pg (25.7-33.7); MCHC 33.7 g/dl (32.0-35.9); MEAN PLT VOLUME 10.5 fl (7.5-11.1); MONO % 6.5 % (3.8-10.2); NEUT % 58.4 % (42.8-82.8); PLATELET COUNT 294 K/MM3 (134-434); RDW 14.4 % (11.9-15.9); WHITE BLOOD COUNT 8.2 K/mm3 (4.0-10.0)
--- NOTE | 2017-10-15 14:07 | PN ---
Progress Note, Physician Chief Complaint: The patient seen in his room. Reports feeling better. Maintains good urine output. Still with a lot of body aches. History of Present Illness: Patient is a 27 year old male with a past medical history of asthma and eczema. Came to the hospital for evaluation of hematuria and an episode of tea colored urine. Patient reports weightlifting on Tuesday after not exercising for a while. On Tuesday, he lifted heavy upper body weights that consisted of dumb bells and free weights. The CPK was extremely elevated on admission, and improving since. - Current Medication List Current Medications: Active Medications Albuterol/Ipratropium (Duoneb -) 1 amp NEB Q6H PRN PRN Reason: SHORTNESS OF BREATH Last Admin: 10/14/17 08:33 Dose: 1 amp Heparin Sodium (Porcine) (Heparin -) 5,000 unit SQ BID [facility] Last Admin: 10/15/17 10:27 Dose: 5,000 unit Potassium Chloride/Dextrose/Sod Cl (D5-1/2ns+10 Meq Kcl -) 10 meq in 1,000 mls @ 125 mls/hr IV ASDIR [facility] Last Admin: 10/15/17 13:37 Dose: 125 mls/hr Mometasone Furoate (Asmanex 110mcg -) 1 puff IH BID [facility] Last Admin: 10/15/17 10:35 Dose: 1 puff Mupirocin (Bactroban 2% Ointment -) 1 applic TP BID [facility] Last Admin: 10/15/17 10:28 Dose: 1 applic Pantoprazole Sodium (Protonix -) 40 mg PO DAILY [facility] Last Admin: 10/15/17 10:27 Dose: 40 mg - Objective Vital Signs: Vital Signs Temperature 97.8 F 10/15/17 05:40 Pulse Rate 66 10/15/17 05:40 Respiratory Rate 20 10/15/17 05:40 Blood Pressure 142/79 10/15/17 05:40 O2 Sat by Pulse Oximetry (%) 98 10/14/17 21:00 Constitutional: Yes: Well Nourished, Anxious Eyes: Yes: Conjunctiva Clear HENT: Yes: Normocephalic Neck: Yes: Trachea Midline Cardiovascular: Yes: Regular Rate and Rhythm, S1, S2 Respiratory: Yes: CTA Bilaterally, Diminished Gastrointestinal: Yes: Normal Bowel Sounds, Soft Genitourinary: No: Bladder Distention, CVA Tenderness - Left, CVA Tenderness - Right, Hematuria Musculoskeletal: Yes: Joint Stiffness, Muscle Pain Neurological: Yes: Alert, Oriented Labs: CBC, BMP 10/15/17 11:15 10/15/17 07:50 Problem List - Problems (1) Myoglobinuria Code(s): 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 He presents to the ED today for evaluation of hematuria and an episode of tea colored urine. The patient has profound elevation of CPK, with slightly dark urine. Renal functions normal. Acute traumatic Rhabdomyolysis, from excessive physical exertion. No evidence of Renal failure. Electrolytes in acceptable range. Plan: Vigorous hydration to continue. Monitor the Renal/ electrolyte functions. IV fluids as ordered. if the CPK continues to improve, he can be discharged in AM, with instruction to follow as out patient, and avoid vigorous physical exercise. Thank you. Will follow with you. Annabelle Canada MD
--- NOTE | 2017-10-15 16:57 | PN ---
Physical Exam: SUBJECTIVE: Patient seen and examined at the bedside. Feels well, in no acute distress. OBJECTIVE: Vital Signs Period Temp Pulse Resp BP Sys/Stevens Pulse Ox Last 24 Hr 97.7 F-98.3 F 66-96 18-20 114-142/44-79 98 GENERAL: Awake, alert, and fully oriented, in no acute distress. HEAD: Normal with no signs of trauma. EYES: Pupils equal, round and reactive to light, extraocular movements intact, sclera anicteric, conjunctiva clear. No lid lag. EARS, NOSE, THROAT: Ears normal, nares patent, oropharynx clear without exudates. Moist mucous membranes. NECK: Normal range of motion, supple without lymphadenopathy, JVD, or masses. LUNGS: Breath sounds equal, clear to auscultation bilaterally. No wheezes, and no crackles. No accessory muscle use. HEART: Regular rate and rhythm ABDOMEN: Soft, nontender, not distended, normoactive bowel sounds, no guarding, no rebound, no masses. No hepatomegaly or splenomegaly. MUSCULOSKELETAL: Normal range of motion at all joints. No bony deformities or tenderness. No CVA tenderness. UPPER EXTREMITIES: No peripheral edema. LOWER EXTREMITIES: right inner ankle, mild redness, treated for cellulitis, apply bactroban - site improving NEUROLOGICAL: Normal speech. Normal gait. PSYCHIATRIC: Cooperative. Good eye contact. Appropriate mood and affect. Laboratory Results - last 24 hr 10/15/17 10/15/17 10/15/17 07:50 07:50 11:15 WBC 8.2 RBC 4.80 Hgb 14.1 Hct 41.8 MCV 87.0 MCH 29.3 MCHC 33.7 RDW 14.4 Plt Count 294 MPV 10.5 D Absolute Neuts (auto) 4.8 Neutrophils % 58.4 Lymphocytes % 29.5 Monocytes % 6.5 Eosinophils % 5.3 H Basophils % 0.3 Nucleated RBC % 0 Sodium 141 Potassium 4.3 Chloride 107 Carbon Dioxide 29 Anion Gap 5 L BUN 9 Creatinine 0.7 Creat Clearance w eGFR > 60 Random Glucose 85 D Uric Acid 4.9 Calcium 8.6 Phosphorus 4.4 Magnesium 2.0 Total Bilirubin 0.2 AST 931 H ALT 431 H Alkaline Phosphatase 42 L Creatine Kinase 58210 H Cancelled Creatine Kinase Index 0.2 CK-MB (CK-2) 42.84 H Total Protein 7.0 Albumin 3.4 Active Medications Generic Name Dose Route Start Last Admin Trade Name Agustin PRN Reason Stop Dose Admin Albuterol/Ipratropium 1 amp 10/13/17 18:58 10/14/17 08:33 Duoneb - NEB 1 amp Q6H PRN Administration SHORTNESS OF BREATH Heparin Sodium (Porcine) 5,000 unit 10/13/17 22:00 10/15/17 10:27 Heparin - SQ 5,000 unit BID LORNA Administration Potassium Chloride/Dextrose/Sod Cl 10 meq in 1,000 mls @ 125 mls/hr 10/14/17 12:15 10/15/17 13:37 D5-1/2ns+10 Meq Kcl - IV 125 mls/hr ASDIR LORNA Administration Mometasone Furoate 1 puff 10/13/17 22:00 10/15/17 10:35 Asmanex 110mcg - IH 1 puff BID LORNA Administration Mupirocin 1 applic 10/13/17 22:00 10/15/17 10:28 Bactroban 2% Ointment - TP 1 applic BID LORNA Administration Pantoprazole Sodium 40 mg 10/14/17 10:00 10/15/17 10:27 Protonix - PO 40 mg DAILY LORNA Administration ASSESSMENT/PLAN: Patient is a 27 year old male with a past medical history of asthma and eczema. He presents to the ED today for evaluation of hematuria and was found to have rhabdomylysis with a CPK of 76,236. Imaging: renal ultrasound: no acute pathology, small simple cyst 1.8cm on right kidney, mild fatty liver seen Renal: Rhabdomyolysis, improved CPK 76,236 >20,124. bun/creat function within normal limits. ast/alt trending down. aggressive IVF hydration of d5 1/2 ns 10meq kcl @125cc/hr. Monitor kidney function with daily labs. renal consulted and following. Pulm: Asthma: not in exacerbation. On Asmanex. 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 Was treated outpatient with 6/7 doses of PO antibiotics, apply bactroban to area. Improving. fen d5 1/2 ns 10meq kcl @ 125/cc/hr monitor electrolytes low salt prophy heparin bid Visit type - Emergency Visit Emergency Visit: Yes ED Registration Date: 10/13/17 Care time: The patient presented to the Emergency Department on the above date and was hospitalized for further evaluation of their emergent condition. - New Patient This patient is new to me today: No - Critical Care Critical Care patient: No - Discharge Referral Referred to [facility] No
[2017-10-16] MEDS: D5-1/2NS+10 MEQ KCL - 10 MEQ/1,000 ML INFUS.BAG IV SCH ×2 (01:43→09:08)
[2017-10-16 06:35] VITALS: TEMP 97.7
[2017-10-16 06:53] LABS: EOS % 6.1 % (0-4.5); HEMATOCRIT 40.8 % (35.4-49); LYMPH % 26.2 % (8-40); MCH 29.7 pg (25.7-33.7); MCHC 34.5 g/dl (32.0-35.9); MEAN PLT VOLUME 8.4 fl (7.5-11.1); MONO % 6.8 % (3.8-10.2); NEUT % 59.9 % (42.8-82.8); PLATELET COUNT 303 K/MM3 (134-434); RBC 4.74 M/mm3 (4.00-5.60); RDW 13.8 % (11.9-15.9)
[2017-10-16 07:18] LABS: ALBUMIN 3.5 g/dl (3.4-5.0); ANION GAP 8 (8-16); BLOOD UREA NITROGEN 8 mg/dL (7-18); CALCIUM 8.8 mg/dL (8.5-10.1); CHLORIDE 105 mmol/L (98-107); CO2 28 mmol/L (21-32); GLUCOSE,RANDOM 94 mg/dL (74-106); MAGNESIUM 2.1 mg/dL (1.8-2.4); SODIUM 141 mmol/L (136-145)
[2017-10-16 07:21] LABS: SGOT/AST 695 U/L (15-37)
[2017-10-16 07:45] LABS: ALK PHOS 39 U/L (45-117); BILIRUBIN,TOTAL 0.3 mg/dL (0.2-1.0); CREATININE 0.6 mg/dL (0.7-1.3); TOT PROT 7.1 g/dl (6.4-8.2)
[2017-10-16 07:58] LABS: SGPT/ALT 413 U/L (12-78)
[2017-10-16] MEDS ORDERED: PT OWN MED DRAWER 7, Y5N ONE (10:16)
[2017-10-16] MEDS: MOMETASONE FUROATE 110 MCG/IH INHALER IH SCH (10:17)
[2017-10-16] MEDS: HEPARIN NA (PORCINE) 5,000 UNITS/ML 1ML VIAL SQ SCH (10:17)
[2017-10-16] MEDS: PANTOPRAZOLE 40 MG TABLET (FP) PO SCH (10:18)
[2017-10-16] MEDS: MUPIROCIN 2% TOPICAL OINTMENT 22 GM TUBE TP SCH (10:18)
[2017-10-16 11:09] VITALS: BP 140/80; PULSE 88
--- NOTE | 2017-10-16 11:19 | PN ---
Progress Note, Physician Chief Complaint: The patient seen in his room. Reports feeling better. Maintains good urine output. IV fluids running History of Present Illness: Patient is a 27 year old male with a past medical history of asthma and eczema. Came to the hospital for evaluation of hematuria and an episode of tea colored urine. Patient reports weightlifting after not exercising for a while. He lifted heavy upper body weights that consisted of dumb bells and free weights. The CPK was extremely elevated on admission, and improving since. - Current Medication List Current Medications: Active Medications Albuterol/Ipratropium (Duoneb -) 1 amp NEB Q6H PRN PRN Reason: SHORTNESS OF BREATH Last Admin: 10/14/17 08:33 Dose: 1 amp Heparin Sodium (Porcine) (Heparin -) 5,000 unit SQ BID [facility] Last Admin: 10/16/17 10:17 Dose: 5,000 unit Potassium Chloride/Dextrose/Sod Cl (D5-1/2ns+10 Meq Kcl -) 10 meq in 1,000 mls @ 125 mls/hr IV ASDIR [facility] Last Admin: 10/16/17 09:08 Dose: 125 mls/hr Mometasone Furoate (Asmanex 110mcg -) 1 puff IH BID [facility] Last Admin: 10/16/17 10:17 Dose: 1 puff Mupirocin (Bactroban 2% Ointment -) 1 applic TP BID [facility] Last Admin: 10/16/17 10:18 Dose: 1 applic Pantoprazole Sodium (Protonix -) 40 mg PO DAILY [facility] Last Admin: 10/16/17 10:18 Dose: Not Given - Objective Vital Signs: Vital Signs Temperature 97.7 F 10/16/17 06:00 Pulse Rate 88 10/16/17 10:00 Respiratory Rate 18 10/16/17 10:00 Blood Pressure 140/80 10/16/17 10:00 O2 Sat by Pulse Oximetry (%) 99 10/16/17 09:00 Constitutional: Yes: Well Nourished, No Distress Eyes: Yes: Conjunctiva Clear HENT: Yes: Normocephalic Neck: Yes: Trachea Midline Cardiovascular: Yes: Regular Rate and Rhythm, S1, S2 Respiratory: Yes: CTA Bilaterally, Diminished Gastrointestinal: Yes: Normal Bowel Sounds, Soft Genitourinary: No: Bladder Distention, CVA Tenderness - Left, CVA Tenderness - Right, Hematuria Edema: No Neurological: Yes: Alert, Oriented Labs: CBC, BMP 10/16/17 06:05 10/16/17 06:05 Problem List - Problems (1) Myoglobinuria Code(s): 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 He presents to the ED today for evaluation of hematuria and an episode of tea colored urine. The patient has profound elevation of CPK, with slightly dark urine. the CPK has improved from 70k to 11k Renal functions normal. Acute traumatic Rhabdomyolysis, from excessive physical exertion. No evidence of Renal failure. Electrolytes in acceptable range. Plan: I view of improving muscle enzymes, will d/c home. Will follow up as outpatient in the office. Thank you again for the privilege to manage this patient's care with you. Annabelle Canada MD
--- NOTE | 2017-10-16 13:05 | DS ---
Physical Exam: SUBJECTIVE: Patient seen and examined OBJECTIVE: Vital Signs Period Temp Pulse Resp BP Sys/Stevens Pulse Ox Last 24 Hr 97.7 F-98.3 F 72-96 18-20 125-140/59-80 98-99 PHYSICAL EXAM GENERAL: Awake, alert, and fully oriented, in no acute distress. HEAD: Normal with no signs of trauma. EYES: Pupils equal, round and reactive to light, extraocular movements intact, sclera anicteric, conjunctiva clear. No lid lag. EARS, NOSE, THROAT: Ears normal, nares patent, oropharynx clear without exudates. Moist mucous membranes. NECK: Normal range of motion, supple without lymphadenopathy, JVD, or masses. LUNGS: Breath sounds equal, clear to auscultation bilaterally. No wheezes, and no crackles. No accessory muscle use. HEART: Regular rate and rhythm ABDOMEN: Soft, nontender, not distended, normoactive bowel sounds, no guarding, no rebound, no masses. No hepatomegaly or splenomegaly. MUSCULOSKELETAL: Normal range of motion at all joints. No bony deformities or tenderness. No CVA tenderness. UPPER EXTREMITIES: No peripheral edema. LOWER EXTREMITIES: right inner ankle, mild redness, treated for cellulitis, apply bactroban - site improving NEUROLOGICAL: Normal speech. Normal gait. PSYCHIATRIC: Cooperative. Good eye contact. Appropriate mood and affect. LABS Laboratory Results - last 24 hr 10/16/17 10/16/17 06:05 06:05 WBC 8.0 RBC 4.74 Hgb 14.0 Hct 40.8 MCV 86.0 MCH 29.7 MCHC 34.5 RDW 13.8 Plt Count 303 MPV 8.4 D Absolute Neuts (auto) 4.8 Neutrophils % 59.9 Lymphocytes % 26.2 Monocytes % 6.8 Eosinophils % 6.1 H Basophils % 1.0 D Nucleated RBC % 0 Sodium 141 Potassium 4.0 Chloride 105 Carbon Dioxide 28 Anion Gap 8 BUN 8 Creatinine 0.6 L Creat Clearance w eGFR > 60 Random Glucose 94 Calcium 8.8 Magnesium 2.1 Total Bilirubin 0.3 AST 695 H D ALT 413 H Alkaline Phosphatase 39 L Creatine Kinase 91231 H Creatine Kinase Index 0.1 CK-MB (CK-2) 20.00 H Total Protein 7.1 Albumin 3.5 HOSPITAL COURSE: Date of Admission:10/13/17 Date of Discharge: 10/16/17 Patient is a 27 year old male with a past medical history of asthma and eczema. He presents to the ED today for evaluation of hematuria and was found to have rhabdomylysis with a CPK of 76,236. Imaging: renal ultrasound: no acute pathology, small simple cyst 1.8cm on right kidney, mild fatty liver seen Renal: Rhabdomyolysis, improving CPK 76,236 >11k bun/creat function within normal limits. ast/alt trending down. aggressive IVF hydration of d5 1/2 ns 10meq kcl @125cc/hr. Monitor kidney function with daily labs. renal consulted and following. Patient to have repeat blood work tomorrrow at [facility] and see Dr. Canada on Tuesday for repeat CPK results. Patient instructed to drink at least 8 glasses of water per day and refrain from exercising until rhabdo resolved. Pulm: Asthma: not in exacerbation. On Asmanex. 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 Was treated outpatient with 6/7 doses of PO antibiotics, apply bactroban to area. Improved, no redness noted. full code Minutes to complete discharge: 60 Discharge Summary Reason For Visit: RHADOMYOLYSIS Current Active Problems Myoglobinuria (Acute) Rhabdomyolysis (Acute) Condition: Improved - Instructions Diet, Activity, Other Instructions: Mr. Rucker: You were diagnosed rhabdomyolysis and have improved since admission. Your CPK will need to be rechecked. Please follow up with the lab tomorrow and Please see Doctor Dread on Tuesday. His information is enclosed. Please return to the ER if your symptoms worsen or if your urine becomes dark colored. Thank you Ellyn Davis NP [facility] @ [facility] [phone] Referrals: Selene Bernard MD [Primary Care Provider] - Disposition: HOME - Home Medications Comprehensive Discharge Medication List: Ambulatory Orders Albuterol 0.083% Nebulizer Yesi [Ventolin 0.083% Nebulizer Soln -] 1 neb NEB Q4H PRN #30 vial 06/01/17 Cephalexin [Keflex] 500 mg PO BID 10/13/17 This patient is new to me today: No Emergency Visit: Yes ED Registration Date: 10/13/17 Care time: The patient presented to the Emergency Department on the above date and was hospitalized for further evaluation of their emergent condition. Critical Care patient: No - Discharge Referral Referred to [facility] No
== END 2017-10-16 13:25 | disposition home or self-care (01) | DRG 558 ==
LOC: JER 13:27 → JERBED 17:15 → J5S 19:17
PROVIDERS: ADMIT Internal Medicine; ATTEND Nurse Practitioner Family
DX: M62.82 Rhabdomyolysis (principal); L03.115 Cellulitis of right lower limb; R82.1 Myoglobinuria; J45.909 Unspecified asthma, uncomplicated; N28.1 Cyst of kidney, acquired; K76.0 Fatty (change of) liver, not elsewhere classified; L30.9 Dermatitis, unspecified; R52 Pain, unspecified; M54.5 Low back pain; G89.29 Other chronic pain; R31.9 Hematuria, unspecified
CPT/HCPCS: 36415; 76775-TC; 80053; 81003; 81015; 82550; 82553; 83735; 84100; 84550; 85025; 87086; 94640; 99283-25; J1644; J7030; J7620

== ENCOUNTER 2020-04-02 17:20 | Inpatient (IN) | payer OTHER ==
[2020-04-02 18:39] LABS: BASO % 0.3 % (0-2.0); EOS % 6.8 % (0-4.5); HEMATOCRIT 39.8 % (35.4-49); HEMOGLOBIN 13.4 GM/dL (11.7-16.9); LYMPH % 20.9 % (8-40); MCH 28.5 pg (25.7-33.7); MCHC 33.8 g/dl (32.0-35.9); MEAN CELL VOLUME 84.2 fl (80-96); MEAN PLT VOLUME 8.7 fl (7.5-11.1); MONO % 8.4 % (3.8-10.2); NEUT % 63.6 % (42.8-82.8); PLATELET COUNT 311 K/MM3 (134-434); RBC 4.72 M/mm3 (4.00-5.60); RDW 15.2 % (11.9-15.9); WHITE BLOOD COUNT 9.6 K/mm3 (4.0-10.0)
[2020-04-02 18:57] LABS: POTASSIUM 3.9 mmol/L (3.5-5.1)
[2020-04-02 18:59] LABS: ALBUMIN 3.8 g/dl (3.4-5.0); BLOOD UREA NITROGEN 13.9 mg/dL (7-18); CALCIUM 9.7 mg/dL (8.5-10.1)
[2020-04-02 19:02] LABS: CREATININE 0.8 mg/dL (0.55-1.3)
[2020-04-02 19:04] LABS: BILIRUBIN,TOTAL 0.2 mg/dL (0.2-1); TOT PROT 7.8 g/dl (6.4-8.2)
[2020-04-02] MEDS ORDERED: SODIUM CHLORIDE 0.9% 500 ML INFUS.BAG IV ONE (19:38)
[2020-04-02] MEDS ORDERED: ASPIRIN 81 MG CHEWABLE TABLETS PO ONE (19:41)
[2020-04-02] MEDS ORDERED: ASPIRIN 81 MG CHEWABLE TABLETS ONE (20:06)
[2020-04-02] MEDS ORDERED: HEPARIN NA (PORCINE) 5,000 UNITS/ML 1ML VIAL IVPUSH ONE (20:12)
[2020-04-02] MEDS ORDERED: HEPARIN NA (PORCINE) 5,000 UNITS/ML 1ML VIAL IVPUSH PRN (20:12)
[2020-04-02] MEDS ORDERED: HEPARIN NA (PORCINE) 5,000 UNITS/ML 1ML VIAL ONE (20:48)
[2020-04-02] MEDS ORDERED: HEPARIN INFUSION - 25,000 UNITS/500 ML INFUS.BAG IVPB ONE (20:48)
[2020-04-02] MEDS: HEPARIN INFUSION - 25,000 UNITS/500 ML INFUS.BAG IVPB SCH (21:06)
[2020-04-02 22:31] LABS: N-TERMINAL BNP 201.8 pg/ml (5-125)
[2020-04-02 22:48] LABS: ERYTHROCYTE SEDIMENTATION RATE 30 mm/hr (0-10)
[2020-04-03 03:14] LABS: INR 1.11 (0.83-1.09); PROTHROMBIN TIME (PATIENT) 13.4 SEC (9.7-13.0)
[2020-04-03 03:17] LABS: ACTIVATED PTT 35.1 SECONDS (25.2-36.5)
[2020-04-03] MEDS ORDERED: HEPARIN NA (PORCINE) 5,000 UNITS/ML 1ML VIAL ONE (03:23)
[2020-04-03 07:10] LABS: BASO % 0.6 % (0-2.0); HEMATOCRIT 40.7 % (35.4-49); HEMOGLOBIN 13.7 GM/dL (11.7-16.9); LYMPH % 30.5 % (8-40); MCH 28.5 pg (25.7-33.7); MCHC 33.7 g/dl (32.0-35.9); MEAN CELL VOLUME 84.6 fl (80-96); MEAN PLT VOLUME 9.5 fl (7.5-11.1); MONO % 8.1 % (3.8-10.2); NEUT % 53.8 % (42.8-82.8); PLATELET COUNT 295 K/MM3 (134-434); RBC 4.81 M/mm3 (4.00-5.60); RDW 15.2 % (11.9-15.9); WHITE BLOOD COUNT 9.9 K/mm3 (4.0-10.0)
[2020-04-03 07:19] LABS: POTASSIUM 3.9 mmol/L (3.5-5.1)
[2020-04-03 07:25] LABS: ALBUMIN 3.5 g/dl (3.4-5.0); BLOOD UREA NITROGEN 11.1 mg/dL (7-18); CALCIUM 8.7 mg/dL (8.5-10.1)
[2020-04-03 07:28] LABS: CREATININE 0.8 mg/dL (0.55-1.3); PHOSPHOROUS 4.4 mg/dL (2.5-4.9)
[2020-04-03 07:29] LABS: BILIRUBIN,TOTAL 0.5 mg/dL (0.2-1); TOT PROT 7.2 g/dl (6.4-8.2)
[2020-04-03 19:06] VITALS: BMI 39.4
[2020-04-03] MEDS: HEPARIN INFUSION - 25,000 UNITS/500 ML INFUS.BAG IVPB SCH (23:11)
[2020-04-03] MEDS: BUDESONIDE/FORMETEROL FUMARATE 160/4.5 mcg INHALER IH SCH (23:13)
[2020-04-03] MEDS ORDERED: HYDROCORTISONE 0.5% TOPICAL OINTMENT TUBE TP ONE (23:26)
[2020-04-04 08:24] LABS: BASO % 0.7 % (0-2.0); EOS % 7.6 % (0-4.5); HEMATOCRIT 40.6 % (35.4-49); HEMOGLOBIN 13.8 GM/dL (11.7-16.9); LYMPH % 26.3 % (8-40); MCH 28.8 pg (25.7-33.7); MEAN CELL VOLUME 84.7 fl (80-96); MEAN PLT VOLUME 9.4 fl (7.5-11.1); MONO % 7.5 % (3.8-10.2); NEUT % 57.9 % (42.8-82.8); PLATELET COUNT 303 K/MM3 (134-434); RBC 4.79 M/mm3 (4.00-5.60); RDW 15.1 % (11.9-15.9); WHITE BLOOD COUNT 8.2 K/mm3 (4.0-10.0)
[2020-04-04 08:29] LABS: POTASSIUM 4.3 mmol/L (3.5-5.1)
[2020-04-04 08:36] LABS: CALCIUM 8.5 mg/dL (8.5-10.1)
[2020-04-04 08:37] LABS: ALBUMIN 3.4 g/dl (3.4-5.0); BLOOD UREA NITROGEN 9.9 mg/dL (7-18); MAGNESIUM 2.2 mg/dL (1.8-2.4)
[2020-04-04 08:40] LABS: CREATININE 0.8 mg/dL (0.55-1.3)
[2020-04-04 08:41] LABS: BILIRUBIN,TOTAL 0.7 mg/dL (0.2-1)
[2020-04-04 08:42] LABS: TOT PROT 7.2 g/dl (6.4-8.2)
[2020-04-04] MEDS ORDERED: HYDROCORTISONE 0.5% TOPICAL OINTMENT TUBE TP PRN (09:48)
[2020-04-04] MEDS ORDERED: PATIENT'S OWN MEDICATION (NON-FORMULARY) (Fluticasone/Vilanterol [Breo Ellipta 200-25 Mcg IH SCH (10:00)
[2020-04-04] MEDS ORDERED: MONTELUKAST NA 10 MG TABLET PO SCH (10:00)
[2020-04-04] MEDS: BUDESONIDE/FORMETEROL FUMARATE 160/4.5 mcg INHALER IH SCH (10:08)
[2020-04-04] MEDS ORDERED: FAMOTIDINE 20 MG TABLET PO SCH (12:45)
[2020-04-04] MEDS ORDERED: HYDROCORTISONE 1% TOPICAL OINT 30 GM TUBE TP PRN (13:30)
[2020-04-04 15:15] VITALS: BP 116/67; PULSE 86; TEMP 98.2
== END 2020-04-04 18:56 | disposition home or self-care (01) | DRG 313 ==
LOC: JER 17:20 → JERBED 20:21 → J4W 04-03 19:00
PROVIDERS: ADMIT Hospitalist; ATTEND Nurse Practitioner Acute Care
DX: R07.9 Chest pain, unspecified (principal); J45.909 Unspecified asthma, uncomplicated; K21.9 Gastro-esophageal reflux disease without esophagitis; R77.8 Other specified abnormalities of plasma proteins; E66.9 Obesity, unspecified; Z68.39 Body mass index [BMI] 39.0-39.9, adult
CPT/HCPCS: 36415; 71046-TC-FY; 71275-TC; 80053; 82550; 82553; 83735; 83880; 84100; 84443; 84484; 85025; 85379; 85610; 85651; 85730; 86140; 87040; 87804; 93005; 93010; 93306-TC; 99285-25; C9803; J1644; U0003

== ENCOUNTER 2020-04-14 21:16 | Observation (INO) | payer OTHER ==
[2020-04-14 21:34] VITALS: BMI 39.5
[2020-04-14 22:36] LABS: BASO % 0.8 % (0-2.0); EOS % 2.2 % (0-4.5); HEMATOCRIT 40.3 % (35.4-49); HEMOGLOBIN 13.4 GM/dL (11.7-16.9); LYMPH % 22.2 % (8-40); MCH 28.4 pg (25.7-33.7); MCHC 33.1 g/dl (32.0-35.9); MEAN CELL VOLUME 85.6 fl (80-96); MEAN PLT VOLUME 9.1 fl (7.5-11.1); MONO % 6.4 % (3.8-10.2); NEUT % 68.4 % (42.8-82.8); PLATELET COUNT 331 K/MM3 (134-434); RBC 4.71 M/mm3 (4.00-5.60); RDW 15.1 % (11.9-15.9); WHITE BLOOD COUNT 11.7 K/mm3 (4.0-10.0)
[2020-04-14 22:59] LABS: CHLORIDE 104 mmol/L (98-107); POTASSIUM 3.8 mmol/L (3.5-5.1); SODIUM 137 mmol/L (136-145)
[2020-04-14 23:01] LABS: ALBUMIN 3.9 g/dl (3.4-5.0); CALCIUM 9.1 mg/dL (8.5-10.1)
[2020-04-14 23:02] LABS: ANION GAP 6 MMOL/L (8-16); CO2 27 mmol/L (21-32); GLUCOSE,RANDOM 81 mg/dL (74-106); LIPASE 253 U/L (73-393)
[2020-04-14 23:05] LABS: CREATININE 0.8 mg/dL (0.55-1.3); SGOT/AST 16 U/L (15-37); SGPT/ALT 53 U/L (13-61)
[2020-04-14 23:06] LABS: BILIRUBIN,TOTAL 0.3 mg/dL (0.2-1)
[2020-04-14 23:07] LABS: ALK PHOS 44 U/L (45-117); TOT PROT 7.9 g/dl (6.4-8.2)
[2020-04-14 23:24] LABS: ERYTHROCYTE SEDIMENTATION RATE 26 mm/hr (0-10)
[2020-04-15] MEDS ORDERED: MAG HYDROX/AL HYDROX/SIMETH 30 ML UNIT-DOSE CUP PO ONE (02:00)
[2020-04-15] MEDS ORDERED: MAG HYDROX/AL HYDROX/SIMETH 30 ML UNIT-DOSE CUP ONE (02:04)
[2020-04-15] MEDS ORDERED: ALBUTEROL SO4 HFA INHALER IH PRN (02:30)
[2020-04-15 07:21] LABS: HEMATOCRIT 39.9 % (35.4-49); HEMOGLOBIN 13.5 GM/dL (11.7-16.9); MCH 28.8 pg (25.7-33.7); MCHC 33.9 g/dl (32.0-35.9); MEAN CELL VOLUME 85.1 fl (80-96); MEAN PLT VOLUME 8.8 fl (7.5-11.1); PLATELET COUNT 312 K/MM3 (134-434); RBC 4.68 M/mm3 (4.00-5.60); RDW 15.3 % (11.9-15.9); WHITE BLOOD COUNT 10.8 K/mm3 (4.0-10.0)
[2020-04-15 07:41] VITALS: TEMP 97.9
[2020-04-15 07:45] LABS: POTASSIUM 3.8 mmol/L (3.5-5.1)
[2020-04-15 07:47] LABS: BLOOD UREA NITROGEN 11.8 mg/dL (7-18); CALCIUM 8.7 mg/dL (8.5-10.1); MAGNESIUM 2.2 mg/dL (1.8-2.4)
[2020-04-15 07:50] LABS: CREATININE 0.9 mg/dL (0.55-1.3)
[2020-04-15] MEDS ORDERED: BUDESONIDE/FORMETEROL FUMARATE 160/4.5 mcg INHALER IH SCH (10:00)
[2020-04-15] MEDS ORDERED: ENOXAPARIN NA (PORCINE) 40 MG/0.4 ML DISP.SYRIN SQ SCH (10:00)
[2020-04-15] MEDS ORDERED: PATIENT'S OWN MEDICATION (NON-FORMULARY) (Fluticasone/Vilanterol [Breo Ellipta 200-25 Mcg IH SCH (10:00)
[2020-04-15] MEDS ORDERED: FAMOTIDINE 20 MG TABLET PO SCH (10:00)
[2020-04-15] MEDS ORDERED: FAMOTIDINE 20 MG TABLET ONE (10:08)
[2020-04-15] MEDS ORDERED: ENOXAPARIN NA (PORCINE) 40 MG/0.4 ML DISP.SYRIN SQ ONE (10:08)
[2020-04-15 13:51] VITALS: BP 124/70; PULSE 78
[2020-04-15] MEDS ORDERED: MONTELUKAST NA 10 MG TABLET PO SCH (22:00)
== END 2020-04-15 15:00 | disposition home or self-care (01) ==
LOC: JER 21:16 → INTOOBSV 04-15 00:52 → JERBED 04-15 00:52
PROVIDERS: ADMIT Hospitalist; ATTEND Internal Medicine
PROC: 3E0234Z Introduction of Serum, Toxoid and Vaccine into Muscle, Percutaneous Approach (ICD-10-PCS; principal; 2020-04-15)
DX: R55 Syncope and collapse (principal); Z86.16 Personal history of COVID-19; I51.4 Myocarditis, unspecified; M62.82 Rhabdomyolysis; K21.9 Gastro-esophageal reflux disease without esophagitis; L30.9 Dermatitis, unspecified; L03.115 Cellulitis of right lower limb; R31.9 Hematuria, unspecified; L03.116 Cellulitis of left lower limb; Z29.9 Encounter for prophylactic measures, unspecified
CPT/HCPCS: 36415; 71045-TC-FY; 80048; 80053; 82550; 83690; 83735; 83880; 84443; 84484; 85025; 85027; 85651; 86140; 93005; 93010; 96372; 99285-25; C9803; G0378; U0003

== ENCOUNTER 2020-09-12 10:19 | Emergency (ER) | payer OTHER ==
[2020-09-12 10:30] VITALS: BP 135/85; PULSE 105; TEMP 98.2; BMI 38.7
[2020-09-12] MEDS ORDERED: LIDOCAINE 5% TOPICAL PATCH TP ONE (11:04)
[2020-09-12] MEDS ORDERED: KETOROLAC TROMETHAMINE 15 MG/ML VIAL IM ONE (11:04)
[2020-09-12] MEDS ORDERED: KETOROLAC TROMETHAMINE 15 MG/ML VIAL ONE (11:15)
[2020-09-12] MEDS ORDERED: LIDOCAINE 5% TOPICAL PATCH ONE (11:15)
[2020-09-12] MEDS ORDERED: LIDOCAINE PATCH REMOVAL MC SCH (22:00)
== END 2020-09-12 12:28 | disposition home or self-care (01) ==
LOC: JERFT 10:19
PROC: 3E0233Z Introduction of Anti-inflammatory into Muscle, Percutaneous Approach (ICD-10-PCS; principal; 2020-09-12)
DX: M54.5 Low back pain (principal); S39.012A Strain of muscle, fascia and tendon of lower back, initial encounter
CPT/HCPCS: 99284-25

== ENCOUNTER 2021-07-19 08:43 | Emergency (ER) | payer OTHER ==
[2021-07-19 08:57] VITALS: BMI 40.3
[2021-07-19 11:14] LABS: BASO % 0.7 % (0-2.0); EOS % 8.8 % (0-4.5); HEMATOCRIT 39.2 % (35.4-49); HEMOGLOBIN 13.1 GM/dL (11.7-16.9); MCH 28.2 pg (25.7-33.7); MCHC 33.3 g/dl (32.0-35.9); MEAN CELL VOLUME 84.4 fl (80-96); MEAN PLT VOLUME 9.3 fl (7.5-11.1); MONO % 7.2 % (3.8-10.2); NEUT % 61.3 % (42.8-82.8); PLATELET COUNT 263 10^3/uL (134-434); RBC 4.65 M/mm3 (4.00-5.60); RDW 14.5 % (11.9-15.9)
[2021-07-19 11:36] LABS: CALCIUM 8.6 mg/dL (8.5-10.1)
[2021-07-19 11:37] LABS: ALBUMIN 3.6 g/dl (3.4-5.0)
[2021-07-19 11:40] LABS: CREATININE 0.7 mg/dL (0.55-1.3)
[2021-07-19 11:41] LABS: BILIRUBIN,TOTAL 0.4 mg/dL (0.2-1)
[2021-07-19 11:44] LABS: N-TERMINAL BNP 30.1 pg/ml (5-125)
[2021-07-19] MEDS ORDERED: SODIUM CHLORIDE 0.9% 500 ML INFUS.BAG IV ONE (12:29)
[2021-07-19] MEDS ORDERED: LIDOCAINE 5% TOPICAL PATCH ONE (12:54)
[2021-07-19] MEDS ORDERED: LIDOCAINE 5% TOPICAL PATCH TP ONE (13:29)
[2021-07-19] MEDS ORDERED: METHOCARBAMOL 500 MG TABLET PO ONE (16:12)
[2021-07-19] MEDS ORDERED: KETOROLAC TROMETHAMINE 30 MG/1 ML VIAL IVPUSH ONE (16:12)
[2021-07-19] MEDS ORDERED: ACETAMINOPHEN 500 MG TABLET (FP) PO ONE (16:12)
[2021-07-19] MEDS ORDERED: METHOCARBAMOL 500 MG TABLET ONE (16:26)
[2021-07-19] MEDS ORDERED: ACETAMINOPHEN 325 MG TABLET (FP) ONE (16:26)
[2021-07-19] MEDS ORDERED: KETOROLAC TROMETHAMINE 30 MG/1 ML VIAL ONE (16:27)
[2021-07-19 16:35] VITALS: BP 101/55; PULSE 87; TEMP 98.4
[2021-07-19 16:44] LABS: URINE APPEARANCE CLEAR; URINE BILIRUBIN NEGATIVE (NEGATIVE); URINE COLOR YELLOW; URINE GLUCOSE (UA) NEGATIVE (NEGATIVE); URINE KETONE NEGATIVE (NEGATIVE); URINE LEUK ESTERASE NEGATIVE (NEGATIVE); URINE NITRITE NEGATIVE (NEGATIVE); URINE PROTEIN NEGATIVE (NEGATIVE); URINE UROBILINOGEN 0.2 mg/dL (0.2-1.0)
[2021-07-19] MEDS ORDERED: LIDOCAINE PATCH REMOVAL MC ONE (22:00)
== END 2021-07-19 16:44 | disposition home or self-care (01) ==
LOC: JER 08:43
PROC: 3E0233Z Introduction of Anti-inflammatory into Muscle, Percutaneous Approach (ICD-10-PCS; principal; 2021-07-19)
DX: R60.9 Edema, unspecified (principal)
CPT/HCPCS: 36415; 71046-TC-FY; 80053; 81003; 82550; 82553; 83880; 84484; 85025; 93005; 93010; 93970-TC; 99284-25

== ENCOUNTER 2021-10-31 22:21 | Emergency (ER) | payer OTHER ==
[2021-10-31 22:51] VITALS: BP 120/72; PULSE 89; RESP 18; TEMP 98.1; BMI 38.7
[2021-11-01 00:47] LABS: BASO % 0.6 % (0-2.0); EOS % 3.9 % (0-4.5); HEMATOCRIT 39.2 % (35.4-49); HEMOGLOBIN 13.1 GM/dL (11.7-16.9); LYMPH % 25.4 % (8-40); MCH 28.4 pg (25.7-33.7); MCHC 33.5 g/dl (32.0-35.9); MEAN CELL VOLUME 84.8 fl (80-96); MONO % 11.5 % (3.8-10.2); NEUT % 58.6 % (42.8-82.8); PLATELET COUNT 250 10^3/uL (134-434); RBC 4.63 M/mm3 (4.00-5.60); RDW 15.1 % (11.9-15.9); WHITE BLOOD COUNT 8.2 K/mm3 (4.0-10.0)
[2021-11-01 01:07] LABS: ALBUMIN 3.4 g/dl (3.4-5.0); BLOOD UREA NITROGEN 14.1 mg/dL (7-18); CALCIUM 8.6 mg/dL (8.5-10.1); CREATININE 0.9 mg/dL (0.55-1.3)
[2021-11-01 01:09] LABS: BILIRUBIN,TOTAL 0.2 mg/dL (0.2-1); TOT PROT 6.9 g/dl (6.4-8.2)
== END 2021-11-01 01:37 | disposition home or self-care (01) ==
LOC: JER 22:21
DX: R07.9 Chest pain, unspecified (principal)
CPT/HCPCS: 36415; 71046-TC-FY; 80053; 84484; 85025; 93005; 93010; 99284-25

== ENCOUNTER 2022-03-03 13:38 | Emergency (ER) | payer OTHER ==
[2022-03-03 15:16] VITALS: BP 104/44; PULSE 73; RESP 18; TEMP 98.5; BMI 36.4
[2022-03-03] MEDS ORDERED: KETOROLAC TROMETHAMINE 30 MG/1 ML VIAL IM ONE (16:11)
[2022-03-03] MEDS ORDERED: METHOCARBAMOL 500 MG TABLET PO ONE (16:11)
[2022-03-03] MEDS ORDERED: METHOCARBAMOL 500 MG TABLET ONE (16:13)
[2022-03-03] MEDS ORDERED: KETOROLAC TROMETHAMINE 30 MG/1 ML VIAL ONE (16:13)
== END 2022-03-03 17:27 | disposition home or self-care (01) ==
LOC: JERFT 13:38 → JER 13:38 → JERFT 17:27
PROC: 3E0233Z Introduction of Anti-inflammatory into Muscle, Percutaneous Approach (ICD-10-PCS; principal; 2022-03-03)
DX: M54.50 Low back pain, unspecified (principal)
CPT/HCPCS: 72131-TC; 99285-25

== ENCOUNTER 2022-06-19 16:02 | Emergency (ER) | payer OTHER ==
[2022-06-19 16:13] VITALS: BP 134/73; PULSE 91; RESP 18; TEMP 97.5; BMI 38.0
== END 2022-06-19 17:10 | disposition home or self-care (01) ==
LOC: JERFT 16:02
DX: H10.32 Unspecified acute conjunctivitis, left eye (principal); H53.8 Other visual disturbances
CPT/HCPCS: 99283-25

== ENCOUNTER 2022-08-24 17:46 | Emergency (ER) | payer OTHER ==
[2022-08-24 18:11] VITALS: TEMP 98; BMI 39.5
[2022-08-24] MEDS ORDERED: SODIUM CHLORIDE 500 ML IV STA (19:01)
[2022-08-24] MEDS ORDERED: ACETAMINOPHEN 1000 MG/100 ML BAG IVPB ONE (19:02)
[2022-08-24] MEDS ORDERED: ACETAMINOPHEN INJECTION 100 ML IVPB ONE (19:39)
[2022-08-24 19:57] LABS: POTASSIUM 3.7 mmol/L (3.5-5.1)
[2022-08-24 19:58] LABS: BASO % 0.6 % (0-2.0); EOS % 6.2 % (0-4.5); HEMATOCRIT 43.6 % (35.4-49); HEMOGLOBIN 14.4 GM/dL (11.7-16.9); LYMPH % 29.3 % (8-40); MCH 28.6 pg (25.7-33.7); MEAN CELL VOLUME 86.6 fl (80-96); MEAN PLT VOLUME 9.7 fl (7.5-11.1); MONO % 6.1 % (3.8-10.2); NEUT % 57.8 % (42.8-82.8); PLATELET COUNT 288 10^3/uL (134-434); RBC 5.03 M/mm3 (4.00-5.60); RDW 14.3 % (11.9-15.9); WHITE BLOOD COUNT 9.5 K/mm3 (4.0-10.0)
[2022-08-24 19:59] LABS: BLOOD UREA NITROGEN 13.9 mg/dL (7-18); CALCIUM 9.1 mg/dL (8.5-10.1); MAGNESIUM 2.2 mg/dL (1.8-2.4)
[2022-08-24 20:03] LABS: CREATININE 0.8 mg/dL (0.55-1.3)
[2022-08-24 20:04] LABS: BILIRUBIN,TOTAL 0.4 mg/dL (0.2-1); TOT PROT 7.7 g/dl (6.4-8.2)
[2022-08-24 20:14] LABS: ACTIVATED PTT 34.2 SECONDS (25.2-36.5); INR 1.1 (0.83-1.09); PROTHROMBIN TIME (PATIENT) 12.7 SEC (9.7-13.0)
[2022-08-24] MEDS ORDERED: MAG HYDROX/AL HYDROX/SIMETH 30 ML UNIT-DOSE CUP PO ONE (20:22)
[2022-08-24] MEDS ORDERED: FAMOTIDINE 20 MG/50 ML IVPB 20 MG/50 ML MG IVPB ONE ×2 (20:22→20:34)
[2022-08-24] MEDS ORDERED: MAG HYDROX/AL HYDROX/SIMETH 30 ML UNIT-DOSE CUP ONE (20:34)
[2022-08-24 22:10] VITALS: BP 126/59; PULSE 66; RESP 16
== END 2022-08-24 22:14 | disposition home or self-care (01) ==
LOC: JER 17:46
PROC: 3E033GC Introduction of Other Therapeutic Substance into Peripheral Vein, Percutaneous Approach (ICD-10-PCS; principal; 2022-08-24)
PROC: 3E033NZ Introduction of Analgesics, Hypnotics, Sedatives into Peripheral Vein, Percutaneous Approach (ICD-10-PCS; 2022-08-24)
PROC: 3E0337Z Introduction of Electrolytic and Water Balance Substance into Peripheral Vein, Percutaneous Approach (ICD-10-PCS; 2022-08-24)
DX: R07.9 Chest pain, unspecified (principal); R20.2 Paresthesia of skin; M79.602 Pain in left arm; R11.0 Nausea; R61 Generalized hyperhidrosis
CPT/HCPCS: 36415; 71046-TC-FY; 80053; 83735; 84484; 85025; 85610; 85730; 93005; 93010; 99285-25

== ENCOUNTER 2023-05-01 15:32 | Emergency (ER) | payer OTHER ==
[2023-05-01 15:39] VITALS: BP 115/57; PULSE 102; RESP 18; TEMP 98.3; BMI 35.5
== END 2023-05-01 17:03 | disposition home or self-care (01) ==
LOC: JERFT 15:32
DX: J02.9 Acute pharyngitis, unspecified (principal); R09.81 Nasal congestion; J06.9 Acute upper respiratory infection, unspecified; U07.1 COVID-19
CPT/HCPCS: 0241U-QW; 99283-25

== ENCOUNTER 2023-06-25 13:06 | Emergency (ER) | payer OTHER ==
[2023-06-25 13:25] VITALS: RESP 18; TEMP 98.5; BMI 37.1
[2023-06-25] MEDS ORDERED: ONDANSETRON 4 MG/2 ML VIAL ONE (13:45)
[2023-06-25] MEDS: ONDANSETRON 4 MG/2 ML VIAL IVPUSH ONE (13:50)
[2023-06-25] MEDS: SODIUM CHLORIDE 0.9% 500 ML INFUS.BAG IV ONE (13:50)
[2023-06-25 14:06] LABS: HEMATOCRIT 47.2 % (35.4-49); HEMOGLOBIN 15.3 GM/dL (11.7-16.9); MCH 28.6 pg (25.7-33.7); MCHC 32.5 g/dl (32.0-35.9); MEAN PLT VOLUME 9.4 fl (7.5-11.1); PLATELET COUNT 265 10^3/uL (134-434); RBC 5.37 M/mm3 (4.00-5.60); RDW 14.3 % (11.9-15.9); WHITE BLOOD COUNT 16.3 K/mm3 (4.0-10.0)
[2023-06-25 14:23] LABS: POTASSIUM 4.5 mmol/L (3.5-5.1)
[2023-06-25 14:25] LABS: CALCIUM 8.9 mg/dL (8.5-10.1)
[2023-06-25 14:26] LABS: ALBUMIN 3.8 g/dl (3.4-5.0); BLOOD UREA NITROGEN 19.6 mg/dL (7-18)
[2023-06-25 14:29] LABS: CREATININE 0.9 mg/dL (0.55-1.3)
[2023-06-25 14:30] LABS: BILIRUBIN,TOTAL 0.7 mg/dL (0.2-1); TOT PROT 7.7 g/dl (6.4-8.2)
[2023-06-25 14:42] LABS: ANISOCYTOSIS 1+; MACROCYTOSIS 0
[2023-06-25 17:14] VITALS: BP 102/67; PULSE 82
== END 2023-06-25 20:20 | disposition home or self-care (01) ==
LOC: JER 13:06
PROC: 3E033GC Introduction of Other Therapeutic Substance into Peripheral Vein, Percutaneous Approach (ICD-10-PCS; principal; 2023-06-25)
DX: R11.2 Nausea with vomiting, unspecified (principal); R63.0 Anorexia; R19.7 Diarrhea, unspecified; K52.9 Noninfective gastroenteritis and colitis, unspecified; R10.13 Epigastric pain; K80.20 Calculus of gallbladder without cholecystitis without obstruction; Z20.822 Contact with and (suspected) exposure to COVID-19
CPT/HCPCS: 0241U-QW; 36415; 74177-TC; 76705-TC; 80053; 83690; 85025; 87651; 99285-25; Q9967

== ENCOUNTER 2024-01-18 11:16 | Emergency (ER) | payer OTHER ==
[2024-01-18 11:44] VITALS: BP 122/79; PULSE 94; RESP 18; TEMP 97.8; BMI 37.1
== END 2024-01-18 15:16 | disposition home or self-care (01) ==
LOC: JERFT 11:16
DX: R07.89 Other chest pain (principal); R05.9 Cough, unspecified; J02.9 Acute pharyngitis, unspecified; J06.9 Acute upper respiratory infection, unspecified; Z20.822 Contact with and (suspected) exposure to COVID-19
CPT/HCPCS: 0241U-QW; 87651; 99283-25

== ENCOUNTER 2024-09-10 15:57 | Emergency (ER) | payer OTHER ==
[2024-09-10 16:47] VITALS: BP 109/52; PULSE 95; RESP 18; TEMP 97.9; BMI 35.5
[2024-09-10] MEDS ORDERED: LIDOCAINE 4% PATCH TP ONE (17:55)
[2024-09-10] MEDS ORDERED: ACETAMINOPHEN 500 MG TABLET (FP) ONE (17:55)
[2024-09-10] MEDS ORDERED: KETOROLAC TROMETHAMINE 30 MG/1 ML VIAL ONE (17:55)
[2024-09-10] MEDS: LIDOCAINE 4% PATCH TP ONE (18:05)
[2024-09-10] MEDS: KETOROLAC TROMETHAMINE 30 MG/1 ML VIAL IM ONE (18:05)
[2024-09-10] MEDS: ACETAMINOPHEN 500 MG TABLET (FP) PO ONE (18:05)
[2024-09-11] MEDS ORDERED: LIDOCAINE PATCH REMOVAL MC SCH (06:00)
== END 2024-09-10 18:57 | disposition home or self-care (01) ==
LOC: JERFT 15:57 → JER 15:57 → JERFT 18:57
PROC: 3E0233Z Introduction of Anti-inflammatory into Muscle, Percutaneous Approach (ICD-10-PCS; principal; 2024-09-10)
DX: M54.50 Low back pain, unspecified (principal); G89.29 Other chronic pain; X50.1XXA Overexertion from prolonged static or awkward postures, initial encounter
CPT/HCPCS: 99284-25